=== PATIENT | female | born 1945 | race Caucasian/White ===

== ENCOUNTER → 2017-12-01 08:38 | Outpatient (CLI) | payer OTHER, SELFPAY ==
--- NOTE | 2017-12-01 08:28 | DI.REPORT_ITS ---
SYMPTOM/DIAGNOSIS: EVAL BILAT KNEE PAIN. EVAL LLD, HIP AND KNEE PAIN BILATERAL KNEES: RIGHT KNEE: There is marked narrowing of the medial femoral tibial joint space. Subchondral sclerosis and flattening of the articular surfaces is also noted. Cliff-articular spurring is seen involving all three joint compartments There is a moderate joint effusion. The bones appear intact The bones are osteopenic. IMPRESSION: Marked osteoarthritis of the right knee. LEFT KNEE: There is marked narrowing of the medial femoral tibial joint space with subchondral sclerosis and flattening of the articular surfaces. There are cliff- articular osteophytes seen involving the medial femoral tibial joint and the patella femoral joint. There is a moderate size joint effusion,. The bones appear intact and normally mineralized. IMPRESSION: Marked osteoarthritis of the left knee.
--- NOTE | 2017-12-01 09:06 | DI.REPORT_ITS ---
SYMPTOM/DIAGNOSIS: EVAL LLD, HIP AND KNEE PAIN BONE LENGTH EXAMINATION: No priors for comparison In the right hip there is marked joint space narrowing, subchondral sclerosis and spurring. There is also loss of volume of the femoral head. In the right knee there is marked joint space narrowing sclerosis and flattening of the articular surfaces predominantly involving the medial femoral tibial joint space. Mild periarticular spurring is seen in the lateral femoral tibial joint space. In the left knee there is marked joint space narrowing and subchondral sclerosis and spurring in the medial femoral tibial joint space. The right lower extremity measures 84.4 cm The left lower extremity measures 87 cm.
== END ==
PROVIDERS: PCP Psychiatry & Neurology Neurology; Visit Provider Student in an Organized Health Care Education/Training Program
DX: M17.11 Unilateral primary osteoarthritis, right knee (principal); M17.12 Unilateral primary osteoarthritis, left knee; M16.11 Unilateral primary osteoarthritis, right hip; M21.70 Unequal limb length (acquired), unspecified site
CPT/HCPCS: 73562 ×2; 77073; 20610; 99214; J1040

== ENCOUNTER → 2018-05-04 08:07 | Outpatient (BNVA) | payer OTHER, SELFPAY | PROVIDERS: PCP Psychiatry & Neurology Neurology; Visit Provider Psychiatry & Neurology Neurology | DX: G20 Parkinson's disease (principal) | CPT/HCPCS: 99213 ==

== ENCOUNTER 2018-05-28 00:34 | Outpatient (CLI) | payer OTHER, SELFPAY ==
--- NOTE | 2018-05-28 10:07 | DI.MAMMO_ITS ---
SYMPTOMS/DIAGNOSIS: SCREENING, Z12.31 MAMMOGRAM: Mammograms were interpreted according to the usual protocol including computer analysis with CAD system, tomosynthesis and C view imaging. Comparison is made with exams from 2012 through 2016. The breasts are composed of heterogeneously dense fibroglandular tissue, breast density Category C. No suspicious masses or suspicious microcalcifications are seen. There is motion on both CC views as well as on the right MLO view. The patient should return for repeat views at no additional charge. IMPRESSION: Bilateral Category O. MQSA ASSESSMENT OF FINDINGS: Incomplete: Needs additional imaging evaluation. Category 0. Patient will receive a letter notifying them of these results. Bi-RADS category C. The breasts are heterogeneously dense, which may obscure small masses.
== END 2018-05-28 00:54 ==
PROVIDERS: PCP Psychiatry & Neurology Neurology; Visit Provider Nurse Practitioner Family
DX: Z12.31 Encounter for screening mammogram for malignant neoplasm of breast (principal); R92.8 Other abnormal and inconclusive findings on diagnostic imaging of breast
CPT/HCPCS: 77063; 77067

== ENCOUNTER 2018-06-02 00:54 | Outpatient (CLI) | payer OTHER, SELFPAY ==
--- NOTE | 2018-06-02 09:45 | DI.MAMMO_ITS ---
SYMPTOMS/DIAGNOSIS: MOTION ON BOTH CC VIEWS, R92.8 REPEAT CRANIOCAUDAD AND MEDIOLATERAL MAMMOGRAMS: Mammograms were interpreted according to the usual protocol including computer analysis with CAD system, tomosynthesis and C view imaging. Today's study is technically satisfactory. Scarring is noted in the upper outer quadrant of the left breast at a biopsy site. There is no definite mass. There are no suspicious calcifications and there has been no significant interval change when compared with prior images. SUMMARY: No evidence of malignancy, category 1. Yearly screening mammography is recommended. Breast density category C. MQSA ASSESSMENT OF FINDINGS: Negative. Category 1. Patient will receive a letter notifying them of these results. Bi-RADS category C. The breasts are heterogeneously dense, which may obscure small masses.
== END 2018-06-02 01:14 ==
PROVIDERS: PCP Psychiatry & Neurology Neurology; Visit Provider Nurse Practitioner Family
DX: Z12.31 Encounter for screening mammogram for malignant neoplasm of breast (principal); R92.8 Other abnormal and inconclusive findings on diagnostic imaging of breast; N64.59 Other signs and symptoms in breast
CPT/HCPCS: 77063; 77067

== ENCOUNTER → 2018-06-11 11:54 | Outpatient (BNVA) | payer OTHER, SELFPAY | PROVIDERS: PCP Psychiatry & Neurology Neurology; Visit Provider Internal Medicine Cardiovascular Disease | DX: I48.2 Chronic atrial fibrillation (principal); I08.3 Combined rheumatic disorders of mitral, aortic and tricuspid valves; I27.20 Pulmonary hypertension, unspecified; G20 Parkinson's disease; Z79.01 Long term (current) use of anticoagulants | CPT/HCPCS: 99214 ==

== ENCOUNTER → 2018-10-26 09:31 | Outpatient (BNVA) | payer OTHER, SELFPAY | PROVIDERS: PCP Nurse Practitioner; Visit Provider Psychiatry & Neurology Neurology | DX: G20 Parkinson's disease (principal) | CPT/HCPCS: 99213 ==

== ENCOUNTER 2018-12-25 06:22 | Day surgery (SDC) | payer OTHER, SELFPAY ==
--- NOTE | 2018-12-24 07:36 | W.PIPPEYE ---
History of Present Illness Chief Complaint: Progressive decreased vision, left eye Narrative: The patient is a 73-year-old lady with history of progressive decreased vision in both eyes at both distance and near. No significant difficulty reading and driving. On examination she was noted to have bilateral nuclear and cortical cataracts with best corrected vision of 20/30 OD, 20/60 OS, but with significant glare disability. NOTE: The Chief Complaint, HPI, Past Medical History, Past Surgical History, Family History, Social History, Medications, and complete Ophthalmic Exam with detailed Assessment and Plan have already been documented in the patient's outpatient ophthalmic record and are not covered again in detail here. [facility] Social History Smoking/Tobacco Use Status: Never Alcohol Intake: current Alcohol Intake frequency: holidays/special occasions only Alcohol type: wine Substance use type: does not use Household members: none What type of physical activity do you participate in: walking and swimming Do you feel safe at home: Yes Additional Social history: with 2 grown children. 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 No smoking. Occasional wine. No illicit drug use. Female Reproductive History Menstrual Menopause type: natural History History 2 Para Hx # Term Pregnancies 2 Multiple births Hx # Pregnancies Ectopic pregnancies AB induced Hx Number of Living Children AB spontaneous Meds Home Medications Medication Instructions Recorded Confirmed Type amantadine HCl 100 mg capsule 100 mg PO TID #270 tab-cap 07/30/18 12/22/18 Rx carbidopa 25 mg-levodopa 100 mg 1 tab PO as directed #35 tab-cap 07/31/18 12/22/18 Rx tablet apixaban 5 mg tablet 5 mg PO BID 90 Days #180 tab-cap 11/19/18 12/22/18 Rx TUMERIC 1 cap PO DAILY PRN 12/14/18 12/22/18 History Allergies Allergy/AdvReac Type Severity Reaction Status Date / Time No Known Allergies Allergy Verified 12/22/18 11:14 Exam OCULAR EXAM:: Most recent ocular examination is significant for best corrected vision of 20/30 OD, 20/60 OS. Intraocular pressure is 16 OD, 15 OS. Extraocular motility is normal. Pupils equal, round, and reactive without afferent pupillary defect slit-lamp examination is significant for pupils dilating to 5.5 mm OU. 2-3+ nuclear cataract with 2-3+ cortical spoking OU. Dilated funduscopic examination shows disc cupping of 0.2 OU with normal vessels, macula, peripheral retina and vitreous. BRIGHTNESS ACUITY TESTING (BAT):: Brightness acuity testing of the left eye office is 20/70. Low is 20/80. Medium is 20/100. High is 20/400 Assessment and Plan (1) Nuclear sclerotic cataract of right eye: Current visit: No Status: Acute Assessment: Visually significant cataract, left eye. Plan: Cataract extraction with intraocular lens implantation, left eye (2) Cortical cataract of left eye: Current visit: No Status: Acute Assessment: Visually significant cataract, left eye. Plan: Cataract extraction with intraocular lens implantation, left eye Note: NOTE:: The details of the planned surgery, including the risks, indications,limitations,expectations,outcome and possible complications were explained to the patient. The patient understands the complications including, but not limited to: infection, hemorrhage, posterior dislocation of the lens or nuclear fragments which may require the intervention of a vitreoretinal surgeon, possible loss of the eye, or from anesthetic complications. The patient has been made aware of the option of not having surgery, that vision following surgery may not be equal to that prior to surgery, and that the planned surgery may not achieve the intended results. Following this discussion, which the patient appeared to understand, the patient wishes to proceed with cataract surgery with lens implantation of the affected eye to improve and maximize vision.
--- NOTE | 2018-12-24 21:02 | W.PM.DSUDISC ---
Discharge Plan Disposition Patient Disposition: HOME Condition: Stable Discharge Details Attending Provider: Eber Lugo Primary Care Provider: Macy Godoy Home Meds and New Rx's Prescriptions: No Action amantadine HCl 100 mg capsule 100 mg PO TID Qty: 270 RF: 3 carbidopa-levodopa [Sinemet] 25-100 mg tablet 1 tab PO as directed Qty: 35 RF: 0 Eliquis 5 mg tablet 5 mg PO BID 90 Days Qty: 180 RF: 6 TUMERIC 1 cap PO DAILY PRNRF: 0 Discharge Instructions Stand Alone Forms: Post-op Topical Cataract, Levi Russ (DSU) DS: Diagnosis Discharge Diagnosis (1) Nuclear sclerotic cataract of right eye: Status: Acute (2) Cortical cataract of left eye: Status: Resolved (3) Nuclear sclerotic cataract of left eye: Status: Resolved (4) Status post cataract extraction and insertion of intraocular lens of left eye: Status: Chronic
[2018-12-25 06:38] VITALS: BP 165/109; PULSE 103; RESP 18; TEMP 35.8; O2SAT 100
[2018-12-25] MEDS: Tropicam./Phenyleph. (1/2.5%) 5 ML BTL OS ×3 (06:53→07:02)
[2018-12-25] MEDS: Tetracaine 0.5% 4 ML BTL OS ×4 (06:53→07:31)
[2018-12-25] MEDS: Povidone-Iodine Ophth 30 ML BTL (07:31)
[2018-12-25] MEDS: Lidocaine 2% Jelly 6 ML SYR (07:31)
[2018-12-25] MEDS: Trypan Blue 0.06% 0.5 ML SYR (07:35)
[2018-12-25] MEDS: Balanced Salt Soln.-PLUS 500 ML BAG (07:37)
[2018-12-25] MEDS: Lidocaine 1% Pres-Free 5 ML VIAL (07:37)
--- NOTE | 2018-12-25 08:11 | W.PM.OP ---
Date of service: 12/25/18 Time of Service: 08:12 Operative Note PRE-OP DIAGNOSIS: Cataract, left eye, with poor red reflex POST-OP DIAGNOSIS: same PROCEDURE: Cataract extraction using phacoemulsification with intraocular lens implant, left eye, using capsular staining with Vision Blue SURGEON: Eber Lugo ANESTHESIA: MAC (with local sub-tenon's anesthetic injection) COMPLICATIONS: None Patient was transported to: same day Patient's condition: stable Implants: Mani and Mani / [employer] Tecnis [id number] Indications: Progressive decreased vision due to cataract, left eye, with poor red reflex Procedure Description: CATARACT SURGERY OPERATIVE REPORT PREOPERATIVE DIAGNOSIS: 1. Nuclear/cortical cataract, left eye 2. Poor red reflex secondary to #1 POSTOPERATIVE DIAGNOSIS: Same OPERATION: 1. Cataract extraction using phacoemulsification with posterior chamber intraocular lens implant, left eye. 2. Capsular staining with Vision Blue IOL: IOL Transformation Lead/Model: Mani & Mani / TARI Tecnis [id number] IOL Power: + 23.0 diopters IOL Serial Number: [id number] Optic Diameter: 6.0 mm Haptic/Overall Diameter: 13.0 mm PHACO INFO: Peter InQ Biosciencesurion Vision System with OZil and Active Fluidics Cumulative Dispersed Energy (CDE): 14.03 seconds SURGEON: Eber Lugo MD, LAURA [facility]HESIA: [facility] ([facility] with local sub-tenon's anesthetic infiltration COMPLICATIONS: None SPECIMENS: None INDICATIONS FOR PROCEDURE: The patient is a 73-year-old lady with history of diminished visual acuity in her left eye. She is noted to have a dense nuclear and cortical cataract with visual acuity of 20/70. The option of cataract surgery was offered to the patient and she wished to proceed. PROCEDURE: The correct surgical eye was identified and marked as the left eye and the pupil was dilated in the preoperative area using mydriatics and cycloplegics. The dilated pupil size was 5.5 mm. Oral sedation was administered in the form of an Imprimis MKO Melt (midazolam 3mg/ketamine 25mg/ondansetron 2mg). The patient was brought to the operating room where cardiopulmonary monitoring was instituted and surgical time-out was performed, confirming the correct operative eye and IOL power. Topical anesthesia was administered and ophthalmic povidone-iodine 5% was instilled into the conjunctival fornices. Lidocaine gel was applied to the cornea and the cliff-ocular area was prepped with Betadine 10% solution and draped in the usual sterile fashion for intraocular surgery, including an aperture drape. A Tegaderm transparent film dressing was cut in half and used to cover the lashes and lid margins. Care was taken to sequester the lashes and lid margins under the Tegaderm dressing. A lid speculum was placed between the lids of the operative eye and the Radha-Chad operating microscope was maneuvered into position. Bob scissors were then used to make a conjunctival buttonhole approximately 6mm posterior to the limbus in the inferonasal quadrant. Blunt dissection was carried out to expose bare sclera, and a blunt-tipped sub-tenon?s anesthesia cannula was introduced and passed posteriorly along the globe where non-preserved plain lidocaine was injected into posterior sub-Tenon?s space. A sideport knife was used to make a paracentesis port at the 12:00 position. Air was injected into the anterior chamber, followed by Vision Blue, which was painted over the anterior capsule and then irrigated out using BSS. The anterior chamber was filled with Healon GV. A 2.4mm keratome knife was used to create a half-thickness groove at the limbus and then to construct a three-plane near-clear corneal tunnel extending 2.0mm into clear cornea at the 3:00 position. A flap was raised on the anterior capsule and capsulorhexis forceps were used to complete a continuous curvilinear capsulorhexis of 5.0 mm. Balanced salt solution was then used to perform cortical cleaving hydrodissection and nuclear hydrodelineation until the lens could be freely rotated within the capsular bag. The lens nucleus was then disassembled and removed within the capsular bag and iris plane using phacoemulsification. The pupil constricted to 3.5 mm during phacoemulsification, making visualization difficult. The iris was noted to be quite floppy. Residual cortical material was removed using the 45-degree angled silicone I/A tip with 0.3mm port. A Kuglen hook was used to retract the iris to ensure complete cortical removal. The posterior capsule was carefully polished to remove as much residual lens epithelial cells as safely possible. The capsular bag was then inflated and the anterior chamber deepened with viscoelastic. The lens implant described above was inserted into the capsular bag using the TARI [place] Injector. A Kuglen hook was used to dial the IOL into position. Residual viscoelastic was then removed first from posterior to the IOL, then from the anterior chamber using the I/A handpiece. The lens implant was noted to center nicely within the capsular bag. The incisions were stromally hydrated, and the anterior chamber was reformed using BSS. Then 0.4cc of moxifloxacin 1.5mg/ml were injected into the capsular bag and anterior chamber. The incisions were checked with a Weck spear and found to be secure. Several drops of ophthalmic povidone-iodine 5% were then applied to the eye followed by two drops of Imprimis combination gatifloxacin/dexamethasone solution. The drapes were removed and a clear plastic protective eye shield was placed over the eye. The patient was then returned to Same Day Surgery in stable condition.
--- NOTE | 2018-12-25 08:14 | ROE_ITS ---
Date of service: 12/25/18 Time of Service: 08:12 Operative Note PRE-OP DIAGNOSIS: Cataract, left eye, with poor red reflex POST-OP DIAGNOSIS: same PROCEDURE: Cataract extraction using phacoemulsification with intraocular lens implant, left eye, using capsular staining with Vision Blue SURGEON: Eber Lugo ANESTHESIA: MAC (with local sub-tenon's anesthetic injection) COMPLICATIONS: None Patient was transported to: same day Patient's condition: stable Implants: Mani and Mani / [employer] Tecnis [id number] Indications: Progressive decreased vision due to cataract, left eye, with poor red reflex Procedure Description: CATARACT SURGERY OPERATIVE REPORT PREOPERATIVE DIAGNOSIS: 1. Nuclear/cortical cataract, left eye 2. Poor red reflex secondary to #1 POSTOPERATIVE DIAGNOSIS: Same OPERATION: 1. Cataract extraction using phacoemulsification with posterior chamber intraocular lens implant, left eye. 2. Capsular staining with Vision Blue IOL: IOL Liaison Officer/Model: Mani & Mani / TARI Tecnis ZCB00 IOL Power: + 23.0 diopters IOL Serial Number: [id number] Optic Diameter: 6.0 mm Haptic/Overall Diameter: 13.0 mm PHACO INFO: Peter N-1-1urion Vision System with OZil and Active Fluidics Cumulative Dispersed Energy (CDE): 14.03 seconds SURGEON: Eber Lugo MD, LAURA ANESTHESIA: [facility]), with local sub-tenon's anesthetic infiltration COMPLICATIONS: None SPECIMENS: None INDICATIONS FOR PROCEDURE: The patient is a 73-year-old lady with history of diminished visual acuity in her left eye. She is noted to have a dense nuclear and cortical cataract with visual acuity of 20/70. The option of cataract surgery was offered to the patient and she wished to proceed. PROCEDURE: The correct surgical eye was identified and marked as the left eye and the pupil was dilated in the preoperative area using mydriatics and cycloplegics. The dilated pupil size was 5.5 mm. Oral sedation was administered in the form of an Imprimis MKO Melt (midazolam 3mg/ketamine 25mg/ondansetron 2mg). The patient was brought to the operating room where cardiopulmonary monitoring was instituted and surgical time-out was performed, confirming the correct operative eye and IOL power. Topical anesthesia was administered and ophthalmic povidone-iodine 5% was instil led into the conjunctival fornices. Lidocaine gel was applied to the cornea and the cliff-ocular area was prepped with Betadine 10% solution and draped in the usual sterile fashion for intraocular surgery, including an aperture drape. A Tegaderm transparent film dressing was cut in half and used to cover the lashes and lid margins. Care was taken to sequester the lashes and lid margins under the Tegaderm dressing. A lid speculum was placed between the lids of the operative eye and the Radha-Chad operating microscope was maneuvered into position. Bob scissors were then used to make a conjunctival buttonhole approximately 6mm posterior to the limbus in the inferonasal quadrant. Blunt dissection was carried out to expose bare sclera, and a blunt-tipped sub-tenon?s anesthesia cannula was introduced and passed posteriorly along the globe where non- preserved plain lidocaine was injected into posterior sub-Tenon?s space. A sideport knife was used to make a paracentesis port at the 12:00 position. Air was injected into the anterior chamber, followed by Vision Blue, which was painted over the anterior capsule and then irrigated out using BSS. The anterior chamber was filled with Healon GV. A 2.4mm keratome knife was used to create a half-thickness groove at the limbus and then to construct a three-plane near-clear corneal tunnel extending 2.0mm into clear cornea at the 3:00 position. A flap was raised on the anterior capsule and capsulorhexis forceps were used to complete a continuous curvilinear capsulorhexis of 5.0 mm. Balanced salt solution was then used to perform cortical cleaving hydrodissection and nuclear hydrodelineation until the lens could be freely rotated within the capsular bag. The lens nucleus was then disassembled and removed within the capsular bag and iris plane using phacoemulsification. The pupil constricted to 3.5 mm during phacoemulsification, making visualization difficult. The iris was noted to be quite floppy. Residual cortical material was removed using the 45-degree angled silicone I/A tip with 0.3mm port. A Kuglen hook was used to retract the iris to ensure complete cortical removal. The posterior capsule was carefully polished to remove as much residual lens epithelial cells as safely possible. The capsular bag was then inflated and the anterior chamber deepened with viscoelastic. The lens implant described above was inserted into the capsular bag using the TARI [place] Injector. A Kuglen hook was used to dial the IOL into position. Residual viscoelastic was then removed first from posterior to the IOL, then f rom the anterior chamber using the I/A handpiece. The lens implant was noted to center nicely within the capsular bag. The incisions were stromally hydrated, and the anterior chamber was reformed using BSS. Then 0.4cc of moxifloxacin 1.5mg/ml were injected into the capsular bag and anterior chamber. The incisions were checked with a Weck spear and found to be secure. Several drops of ophthalmic povidone-iodine 5% were then applied to the eye followed by two drops of Imprimis combination gatifloxacin/dexamethasone solution. The drapes were removed and a clear plastic protective eye shield was placed over the eye. The patient was then returned to Same Day Surgery in stable condition.
[2018-12-25 08:40] VITALS: BP 119/80; PULSE 66; RESP 18; TEMP 36; O2SAT 98
== END 2018-12-25 08:50 | disposition home or self-care (01) ==
LOC: SUR 06:22
PROVIDERS: PCP Nurse Practitioner; Visit Provider Ophthalmology
PROC: (CPT 66982; principal; 2018-12-25 07:30)
DX: H25.12 Age-related nuclear cataract, left eye (principal); H25.012 Cortical age-related cataract, left eye; H35.89 Other specified retinal disorders
CPT/HCPCS: 66982; V2632

== ENCOUNTER 2019-01-08 06:24 | Day surgery (SDC) | payer OTHER, SELFPAY ==
--- NOTE | 2019-01-07 07:55 | W.PIPPEYE ---
History of Present Illness Chief Complaint: Progressive decreased vision, right eye Narrative: The patient is a 73-year-old lady with history of diminished visual acuity in both eyes secondary to the development of bilateral nuclear and cortical cataracts. She noted decreased vision of both distance and near. She has significant difficulty with glare from sunlight and headlights at night. On examination she was noted to have 2-3+ nuclear and cortical cataracts OU. She underwent cataract surgery in the left eye on 12/25/2018, and postoperatively has regained uncorrected visual acuity of 20/25. She now presents for cataract surgery in the right eye. NOTE: The Chief Complaint, HPI, Past Medical History, Past Surgical History, Family History, Social History, Medications, and complete Ophthalmic Exam with detailed Assessment and Plan have already been documented in the patient's outpatient ophthalmic record and are not covered again in detail here. [facility] Social History Smoking/Tobacco Use Status: Never Alcohol Intake: current Alcohol Intake frequency: holidays/special occasions only Alcohol type: wine Substance use type: does not use Household members: none What type of physical activity do you participate in: walking and swimming Do you feel safe at home: Yes Additional Social history: with 2 grown children. 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 No smoking. Occasional wine. No illicit drug use. Female Reproductive History Menstrual Menopause type: natural History History 2 Para Hx # Term Pregnancies 2 Multiple births Hx # Pregnancies Ectopic pregnancies AB induced Hx Number of Living Children AB spontaneous Meds Home Medications Medication Instructions Recorded Confirmed Type amantadine HCl 100 mg capsule 100 mg PO TID #270 tab-cap 07/30/18 12/25/18 Rx carbidopa 25 mg-levodopa 100 mg 1 tab PO as directed #35 tab-cap 07/31/18 12/25/18 Rx tablet apixaban 5 mg tablet 5 mg PO BID 90 Days #180 tab-cap 11/19/18 12/25/18 Rx TUMERIC 1 cap PO DAILY PRN 12/14/18 12/25/18 History Allergies Allergy/AdvReac Type Severity Reaction Status Date / Time No Known Allergies Allergy Verified 12/25/18 06:36 Exam OCULAR EXAM:: Most recent ocular examination is significant for uncorrected visual acuity of 20/50 OD, 20/25 OS. Intraocular pressure is 16 OD, 17 OS. Pupils equal, round, and reactive without afferent pupillary defect extraocular motility is normal. Slit-lamp examination is significant for 2-3+ nuclear 2-3+ cortical spoking OD. Well-positioned PCIOL OS with some residual posterior capsular haze inferiorly dilated funduscopic examination shows disc cupping of 0.2 OU with normal color. The optic nerves have good perfusion and normal color. The retinal vasculature is normal without significant tortuosity or abnormality. The maculas are normal in appearance with normal contour and foveal reflex appropriate for age. The peripheral retina and vitreous are normal. BRIGHTNESS ACUITY TESTING (BAT):: Brightness acuity testing of the right eye off is 20/30. On the low setting is 20/60. On the medium is 20/80. On the high setting is 20/400. Assessment and Plan (1) Cortical cataract of right eye: Current visit: No Status: Acute Assessment: Visually significant cataract, right eye. Plan: Cataract extraction with intraocular lens implantation, right eye (2) Nuclear sclerotic cataract of right eye: Current visit: No Status: Acute Assessment: Visually significant cataract, right eye. Plan: Cataract extraction with intraocular lens implantation, right eye Note: NOTE:: The details of the planned surgery, including the risks, indications,limitations,expectations,outcome and possible complications were explained to the patient. The patient understands the complications including, but not limited to: infection, hemorrhage, posterior dislocation of the lens or nuclear fragments which may require the intervention of a vitreoretinal surgeon, possible loss of the eye, or from anesthetic complications. The patient has been made aware of the option of not having surgery, that vision following surgery may not be equal to that prior to surgery, and that the planned surgery may not achieve the intended results. Following this discussion, which the patient appeared to understand, the patient wishes to proceed with cataract surgery with lens implantation of the affected eye to improve and maximize vision.
[2019-01-08 06:42] VITALS: BP 164/100; PULSE 97; RESP 16; TEMP 35.4; O2SAT 98
[2019-01-08] MEDS: Tetracaine 0.5% 4 ML BTL OD ×4 (06:55→07:38)
[2019-01-08] MEDS: Tropicam./Phenyleph. (1/2.5%) 5 ML BTL OD ×3 (06:56→07:05)
--- NOTE | 2019-01-08 07:17 | W.PM.DSUDISC ---
Discharge Plan Disposition Patient Disposition: HOME Condition: Stable Discharge Details Attending Provider: Eber Lugo Primary Care Provider: Macy Godoy Home Meds and New Rx's Prescriptions: No Action amantadine HCl 100 mg capsule 100 mg PO TID Qty: 270 RF: 3 carbidopa-levodopa [Sinemet] 25-100 mg tablet 1 tab PO as directed Qty: 35 RF: 0 Eliquis 5 mg tablet 5 mg PO BID 90 Days Qty: 180 RF: 6 TUMERIC 1 cap PO DAILY PRNRF: 0 Discharge Instructions Stand Alone Forms: Post-op Topical Cataract, Levi Russ (DSU) DS: Diagnosis Discharge Diagnosis (1) Cortical cataract of right eye: Status: Resolved (2) Nuclear sclerotic cataract of right eye: Status: Resolved (3) Status post cataract extraction and insertion of intraocular lens of right eye: Status: Chronic
[2019-01-08] MEDS: Povidone-Iodine Ophth 30 ML BTL (07:38)
[2019-01-08] MEDS: Lidocaine 1% Pres-Free 5 ML VIAL (07:38)
[2019-01-08] MEDS: Lidocaine 2% Jelly 6 ML SYR (07:38)
[2019-01-08] MEDS: Balanced Salt Soln.-PLUS 500 ML BAG (07:38)
--- NOTE | 2019-01-08 08:06 | W.PM.OP ---
Date of service: 01/08/19 Time of Service: 08:06 Operative Note PRE-OP DIAGNOSIS: Cataract, right eye, with poorly dilating pupil POST-OP DIAGNOSIS: same PROCEDURE: 1. Cataract extraction by phacoemulsification with intraocular lens implantation, right eye, with pupillary expansion device SURGEON: Eber Lugo ANESTHESIA: MAC (with local sub-tenon's anesthetic injection) PATHOLOGY: none sent COMPLICATIONS: None Patient was transported to: same day Patient's condition: stable Implants: Mani and Mani / [employer] Tecnis [id number] Indications: Progressive decreased vision due to cataract, right eye, with poorly dilating pupil Procedure Description: CATARACT SURGERY OPERATIVE REPORT PREOPERATIVE DIAGNOSIS: 1. Nuclear/cortical cataract, right eye 2. Poorly dilating pupil, right eye POSTOPERATIVE DIAGNOSIS: Same OPERATION: 1. Cataract extraction using phacoemulsification with posterior chamber intraocular lens implant, right eye. 2. Pupillary dilation and iris stabilization using Malyugin Ring IOL: IOL Corporate Human Resources Manager/Model: Mani & Mani / TARI Tecnis [id number] IOL Power: + 24.50 diopters IOL Serial Number: [id number] Optic Diameter: 6.0mm Haptic/Overall Diameter: 13.0mm PHACO INFO: [employer] Vision System with OZil and Active Fluidics Cumulative Dispersed Energy (CDE): 8.64 seconds SURGEON: Eber Lugo MD, LAURA ANESTHESIA: Monitored Anesthesia Care (MAC), with local sub-tenon's anesthetic infiltration COMPLICATIONS: None SPECIMENS: None INDICATIONS FOR PROCEDURE: The patient is a 73-year-old lady with history of diminished visual acuity in both eyes secondary to the development of bilateral nuclear cortical and posterior subcapsular cataract. She has already undergone cataract surgery in her left eye and is doing well postoperatively. She now presents for cataract surgery in the right eye. PROCEDURE: The correct surgical eye was identified and marked as the right eye and the pupil was dilated in the preoperative area using mydriatics and cycloplegics. The dilated pupil size was 5.5 mm. Oral sedation was administered in the form of an Imprimis MKO Melt (midazolam 3mg/ketamine 25mg/ondansetron 2mg). The patient was brought to the operating room where cardiopulmonary monitoring was instituted and surgical time-out was performed, confirming the correct operative eye and IOL power. Topical anesthesia was administered and ophthalmic povidone-iodine 5% was instilled into the conjunctival fornices. Lidocaine gel was applied to the cornea and the cliff-ocular area was prepped with Betadine 10% solution and draped in the usual sterile fashion for intraocular surgery, including an aperture drape. A Tegaderm transparent film dressing was cut in half and used to cover the lashes and lid margins. Care was taken to sequester the lashes and lid margins under the Tegaderm dressing. A lid speculum was placed between the lids of the operative eye and the Radha-Chad operating microscope was maneuvered into position. Bob scissors were then used to make a conjunctival buttonhole approximately 6mm posterior to the limbus in the inferonasal quadrant. Blunt dissection was carried out to expose bare sclera, and a blunt-tipped sub-tenon?s anesthesia cannula was introduced and passed posteriorly along the globe where non-preserved plain lidocaine was injected into posterior sub-Tenon?s space. A sideport knife was used to make a paracentesis port inferiortemporally. The anterior chamber was filled with Healon GV. A 2.4mm keratome knife was used to create a half-thickness groove at the limbus and then to construct a three-plane near-clear corneal tunnel extending 2.0mm into clear cornea superiortemporally. A 7.0 mm Malyugin Ring was then inserted into the pupillary space and engaged with the Kuglen hook. A flap was raised on the anterior capsule and capsulorhexis forceps were used to complete a continuous curvilinear capsulorhexis of 5.0 mm. Balanced salt solution was then used to perform cortical cleaving hydrodissection and nuclear hydrodelineation until the lens could be freely rotated within the capsular bag. The lens nucleus was then disassembled and removed within the capsular bag and iris plane using phacoemulsification. Residual cortical material was removed using the 45-degree angled silicone I/A tip with 0.3mm port. The posterior capsule was carefully polished to remove as much residual lens epithelial cells as safely possible. The capsular bag was then inflated and the anterior chamber deepened with viscoelastic. The lens implant described above was inserted into the capsular bag using the TARI Venetie Ira Injector. A Kuglen hook was used to dial the IOL into position. The Malyugin Ring was removed in the reverse order of its insertion. Residual viscoelastic was then removed first from posterior to the IOL, then from the anterior chamber using the I/A handpiece. The lens implant was noted to center nicely within the capsular bag. The incisions were stromally hydrated, and the anterior chamber was reformed using BSS. Then 0.4cc of moxifloxacin 1.5mg/ml were injected into the capsular bag and anterior chamber. The incisions were checked with a Weck spear and found to be secure. Several drops of ophthalmic povidone-iodine 5% were then applied to the eye followed by two drops of Imprimis combination prednisolone/gatifloxacin/bromfenac solution. The drapes were removed and a clear plastic protective eye shield was placed over the eye. The patient was then returned to Same Day Surgery in stable condition.
[2019-01-08 08:25] VITALS: BP 112/72; PULSE 82; RESP 14; TEMP 36.1; O2SAT 99
== END 2019-01-08 08:30 | disposition home or self-care (01) ==
PROVIDERS: PCP Nurse Practitioner; Visit Provider Ophthalmology
PROC: (CPT 66982; principal; 2019-01-08 07:30)
DX: H25.811 Combined forms of age-related cataract, right eye (principal); H57.09 Other anomalies of pupillary function; Z98.42 Cataract extraction status, left eye; Z96.1 Presence of intraocular lens
CPT/HCPCS: 66982; V2632

== ENCOUNTER → 2019-04-26 10:08 | Outpatient (BNVA) | payer OTHER, SELFPAY | PROVIDERS: PCP Nurse Practitioner; Visit Provider Psychiatry & Neurology Neurology | DX: G20 Parkinson's disease (principal) | CPT/HCPCS: 99213 ==

== ENCOUNTER 2019-06-22 01:26 | Outpatient (CLI) | payer OTHER, SELFPAY ==
--- NOTE | 2019-06-22 10:30 | DI.MAMMO_ITS ---
EXAM: MG MAMMO SCREENING CLINICAL HISTORY: screening TECHNIQUE: Mammograms were interpreted according to the usual protocol including computer analysis w Attender CAD system, tomosynthesis and C-view imaging. COMPARISON: [id number] FINDINGS: The breasts are composed of heterogeneously dense fibroglandular tissue, which may obscure small mass es, breast density category C. There are no significant masses or signficant microcalcifications. Th ere has been no significant interval change when compared with prior images. IMPRESSION: Category 1, negative mammogram. Yearly screening mammography is recommended. BI-RADS Cat 1 - Negative Breast Density - Category C - Heterogeneously dense
== END 2019-06-22 01:46 ==
PROVIDERS: PCP Nurse Practitioner; Visit Provider Nurse Practitioner Family
DX: Z12.31 Encounter for screening mammogram for malignant neoplasm of breast (principal)
CPT/HCPCS: 77063; 77067

== ENCOUNTER 2019-06-25 04:36 | Outpatient (CLI) | payer OTHER, SELFPAY ==
--- NOTE | 2019-06-25 10:20 | DI.US_ITS ---
APPROVED REPORT EXAM: Comprehensive 2D, Doppler, and color-flow Echocardiogram Patient Location: In-Patient [employer] Raiser Operator: Michelle Lake [facility] ([facility]) Rhythm: Atrial Fibrillation Indications: MR AI PULMONARY HTN RHEUMRATIC MV disease. i27.20. i35.2, i05.9 Conclusion Left Ventricle : The left ventricle is normal size. There is normal LV segmental wall motion. LVEF is 45-50%. Diastolic function is indeterminate. Right Ventricle : Right ventricle is moderately dilated. Right ventricle is mildly hypokinetic. Atria : Left atrium is severely dilated. Right atrium is severely dilated. Aortic Valve : The Aortic valve is sclerotic. Aortic valve is trileaflet. Mild aortic stenosis (Mean gradient 7mmHg). Moderate aortic regurgitation (PHT 303msec) Mitral Valve : Mitral valve leaflets are mildly thickened. There is no mitral annular calcification. Moderate mitral regurgitation (ERO 0.21, RF 38%.) No evidence of mitral valve stenosis. Tricuspid Valve : The tricuspid valve leaflets are thickened , but open well. Moderate to severe tric uspid regurgitation. There is no hepatic vein diastolic reversal. Pulmonic Valve : Pulmonic valve is not well visualized. Great Vessels : The IVC is dilated but collapses greater than 50%. Estimated RVSP is between 40-45 m mHg. Compared to prior echocardiogram dated 03/09/2018: The patient's ejection fraction has decreased sligh tly. Multiple valvular abnormalities remain grossly unchanged. Wall motion Left Ventricle The left ventricle is normal size. Left ventricular systolic function is mildly decreased. There is n ormal left ventricular wall thickness. There is normal LV segmental wall motion. Diastolic function i s indeterminate. LVEF is 45-50%. Right Ventricle Right ventricle is moderately dilated. Right ventricle is mildly hypokinetic. Atria Left atrium is severely dilated. Right atrium is severely dilated. Aortic Valve The Aortic valve is sclerotic. Aortic valve is trileaflet. Mild aortic stenosis (Mean gradient 7mmHg) . Moderate aortic regurgitation (PHT 303msec). There is no diastolic reversal in the aorta. Mitral Valve There is no mitral annular calcification. The mitral valve is mildly thickened but opens well. No radha dence of mitral valve stenosis. Moderate mitral regurgitation (ERO 0.21, RF 38%.) Tricuspid Valve The tricuspid valve leaflets are thickened , but open well. Moderate to severe tricuspid regurgitatio n. There is no hepatic vein diastolic reversal. Pulmonic Valve Pulmonic valve is not well visualized. Mild to moderate pulmonic regurgitation. Great Vessels The aortic root is normal in size. The IVC is dilated but collapses greater than 50%. Estimated RVSP is between 40-45 mmHg. Pericardium trivial circumfrencial pericardial effusion. 2D Dimensions IVSd 1.02 cm F: 0.6-1.0 LV EDV A2C 74.40 mL PWd 0.95 cm F: 0.6 - 1.0 LV EDV A4C 82.40 mL LVDd 5.14 cm F: 3.9 - 5.3 LA Volume Index A2C 76.64 mL/m2 LVDs 3.96 cm F: 2.2 - 3.5 LA Volume Index A4C 72.39 mL/m2 RVID Base (AP4) 4.50 cm (M/F) 2.5-4.1 LA Volume Index Biplane 78.78 mL/m2 RA Area A4C 29.16 cm2 LA Area A4C 30.37 cm2 LVOT 2.00 cm (M/F) 1.5-2.5 LA Area A2C 29.54 cm2 Ascending Aorta 3.68 cm F: 2.3 - 3.1 EF AP4 49.27 % LVEF (Teich) 45.84 % EF AP2 58.06 % LVEF (Garcia's) 53.72 % F: 54 - 74 EF BP 53.72 % LV Volume 66.96 mL F: 46 - 106 LV Volume Index 42.37 mL/m2 F: 29 - 61 FS 22.99 % LV Diastology MED E' 0.08 (>0.07 m/s) LV E/e MED 13.33 (<14) LAT E' 0.11 (>0.1 m/s) LV E/e LAT 9.85 (<14) Aortic Valve LVOT Area 3.13 cm2 LVOT Peak Richard. 0.77 m/s LVOT Mean Richard. 0.61 m/s LVOT Peak Gr. 2.38 mmHg AMADO Vmax Index 0.87 cm2/m2 LVOT Mean Gr. 1.59 mmHg LVOT VTI 0.15 m AMADO Mean Richard. Index 0.90 cm2/m2 AoV Peak Richard. 1.75 (0.5-1.3 m/s) AoV Mean Richard. 1.33 m/s AI PHT 303.19 msec AO Peak GR. 12.28 mmHg AO Mean GR. 7.60 (<5 mmHg) AO VTI 0.34 (0.18-0.25 m) AV Regurg Decel. 1045.49 msec AMADO (VTI) 1.38 (2.5-4.5 cm2) AMADO (VTI) Index 0.86 cm/m2 Mitral Valve MV E Max Richard. 1.11 (0.4-1.3 m/s) MVA VTI 3.31 (4.0-6.0 cm2) ERO A 0.21 cm2 MV Regurg Volume 45.88 mL MV RF 38.00 % PISA Radius 0.58 cm Pulmonary Valve PV Peak Velocity 0.79 (0.5-1.5 m/s) Tricuspid Valve TR P. Velocity 3.18 m/s TV Regurg Vmax 3.18 m/s TR P. Gradient 40.46 mmHg
== END 2019-06-25 04:56 ==
PROVIDERS: PCP Nurse Practitioner; Visit Provider Internal Medicine Cardiovascular Disease
DX: I27.20 Pulmonary hypertension, unspecified (principal); I08.3 Combined rheumatic disorders of mitral, aortic and tricuspid valves; I48.91 Unspecified atrial fibrillation; I51.7 Cardiomegaly; I10 Essential (primary) hypertension
CPT/HCPCS: 93306

== ENCOUNTER 2019-07-08 08:49 | Outpatient (CLI) | payer OTHER, SELFPAY | END 2019-07-08 09:09 | PROVIDERS: PCP Nurse Practitioner; Visit Provider Internal Medicine Cardiovascular Disease | DX: I48.20 Chronic atrial fibrillation, unspecified (principal); I08.3 Combined rheumatic disorders of mitral, aortic and tricuspid valves; I10 Essential (primary) hypertension; G20 Parkinson's disease | CPT/HCPCS: 99204; 99215 ==

== ENCOUNTER → 2020-04-25 12:16 | Outpatient (BNVA) | payer OTHER, SELFPAY | PROVIDERS: PCP Nurse Practitioner; Visit Provider Psychiatry & Neurology Neurology | DX: G20 Parkinson's disease (principal); I48.20 Chronic atrial fibrillation, unspecified; R26.89 Other abnormalities of gait and mobility; G24.8 Other dystonia; I73.00 Raynaud's syndrome without gangrene | CPT/HCPCS: 99213 ==

== ENCOUNTER 2020-05-30 09:47 | Emergency (ER) | payer OTHER, SELFPAY ==
[2020-05-30 09:53] VITALS: BP 192/98; PULSE 125; RESP 20; O2SAT 100
--- NOTE | 2020-05-30 09:53 | ED.GENADUL_ITS ---
Discharge Plan Disposition Patient Disposition: HOME Condition: Stable Discharge Details Clinical Impression: Epistaxis Primary Care Provider: Macy Godoy ED Provider: Sapna Irving Home Meds and New Rx's Prescriptions: New amoxicillin-pot clavulanate [Augmentin] 875-125 mg tablet 1 tab PO BID 5 Days Qty: 10 RF: 0 Continued amantadine HCl 100 mg capsule 100 mg PO TID Qty: 270 RF: 3 carbidopa-levodopa [Sinemet] 25-100 mg tablet 1 tab PO as directed Qty: 450 RF: 3 Eliquis 5 mg tablet 5 mg PO BID 90 Days Qty: 180 RF: 6 vitamin B complex [B Complex-Vitamin B12] Tablet 1 tab PO DAILY RF: 0 TUMERIC 1 cap PO DAILY PRNRF: 0 Discharge Instructions Instructions: Nosebleed (ED) Additional Instructions: Drink plenty of fluids and get plenty of rest. Take your regular medications as directed. Take the antibiotics until finished. If your nosebleed returns, be sure to place the clamp to help with pressure. You can also try an ice pack to your forehead or back of her head. You can spray Afrin in the nostril around the site of the Rhino Rocket if the nosebleed returns. Avoid picking or blowing your nose and be sure to keep your mouth open with sneezing. You can try Vaseline inside the nostrils to keep your nose lubricated when having the heat on at home. You can also try an at home humidifier. Follow-up with your scheduled appointment with the ear nose and throat Dr. Johnson at his [place] office at 8:30 AM on June 01. You can call their office at [phone] to confirm their [place] address. Referrals: Tuan Johnson MD [ [facility]YSICIAN] - Discharge Data Discharge Date/Time-TO BE ENTERED AT DEPARTURE: 05/30/20 15:12 Discharge Physician: Sapna Irving Medical Decision Making 0489 -- 74-year-old female with a history of atrial fibrillation on Eliquis, osteoarthritis, Parkinson's disease who presents for right-sided nosebleed that started 2 and half hours prior to arrival. Nosebleed appears resolved. There is fresh blood noted along septum superiorly. Patient appears nontoxic and mildly anxious. Heart rate 120s. Blood pressure hypertensive. She has no history of hypertension. At this point time, do not see indication for labs as this just started 2 hours ago. Will spray Afrin in right nares and clamp and reassess after 30 minutes and then remove clamp. 1015 --nurse requested evaluation in room as there was slight oozing through the clamp. Oozing appeared to resolve upon my assessment. Clamp removed and there was no active bleeding source noted. Will re-clamp and reassess. 1230 --patient had multiple episodes of re-oozing which were stopped temporarily with silver nitrate. Will attempt TXA soaked cottonball and reassess. She remains hemodynamically stable without acute complaints. 1430 --patient continued tetanus through 2 separate cotton balls soaked in TXA. Decision made to place Rhino Rocket and patient agreeable. Patient monitored for approximately 30 minutes after Rhino Rocket and no further bleeding. Patient given a dose of Augmentin here and prescription to go. Patient remained hemodynamically stable and asymptomatic. Discussed with patient that I do not see an indication to hold her Eliquis at this time unless bleeding persists. She is advised to call her primary care doctor or Dr. Beatty to confirm whether to decrease or hold her Eliquis dosing if symptoms persist or worsen. Plan also discussed with patient's daughter Stormy over the phone. An appointment was made for patient with Dr. Johnson at the [place] office on June 01 at 8:30 AM. Usual and customary return precautions given prior to discharge. Medical Records Medical records reviewed: Yes I reviewed the patient's medical records. HPI General Mode of arrival: ambulatory . Date/Time Provider Initiated Documentation: 05/30/20 09:48 . Limitations to Documentation: no limitations . Information obtained by: patient . HPI Narrative: Pt is a 74yo F with a history of atrial fibrillation on Eliquis, osteoarthritis, Parkinson's disease who presents to the ED with a complaint of right-sided nosebleed that started approximately 2 and half hours ago at 7:15 AM while sitting at home. Patient states the bleeding was quite fast from her right nares. She states she placed an ice pack to the back of her head and placed pressure over her nares. She denies headache, sore throat, chest pain, shortness of breath, dizziness. She last took her Eliquis this morning. Related Data Home Medications Medication Instructions Recorded Confirmed TUMERIC 1 cap PO DAILY PRN 12/14/18 04/25/20 vitamin B complex 1 tab PO DAILY 04/26/19 04/25/20 apixaban 5 mg tablet 5 mg PO BID 90 Days #180 tab-cap 07/08/19 05/30/20 amantadine HCl 100 mg capsule 100 mg PO TID #270 tab-cap 04/25/20 05/30/20 carbidopa 25 mg-levodopa 100 mg 1 tab PO as directed #450 tab-cap 04/25/2005/18 tablet amoxicillin-pot clavulanate 1 tab PO BID 5 Days #10 tab 05/30/20 [Augmentin] Previous Rx's Medication Instructions Recorded apixaban 5 mg tablet 5 mg PO BID 90 Days #180 tab-cap 07/08/19 amantadine HCl 100 mg capsule 100 mg PO TID #270 tab-cap 04/25/20 carbidopa 25 mg-levodopa 100 mg 1 tab PO as directed #450 tab-cap 04/25/20 tablet amoxicillin-pot clavulanate 1 tab PO BID 5 Days #10 tab 05/30/20 [Augmentin] Allergies Allergy/AdvReac Type Severity Reaction Status Date / Time No Known Allergies Allergy Verified 05/30/20 09:56 Review of Systems All systems reviewed & are unremarkable except as noted in HPI and below Constitutional Constitutional: Reports as per HPI, Denies chills and Denies fever(s) Eyes Eyes: Denies blurry vision ENT Ears, Nose, Mouth, and Throat: Denies dizziness, Reports epistaxis, Denies sore throat and Denies throat swelling Cardiovascular Cardiovascular: Denies chest pain and Denies dyspnea Respiratory Respiratory: Denies cough and Denies dyspnea Gastrointestinal Gastrointestinal: Denies abdominal pain, Denies diarrhea and Denies vomiting Genitourinary Genitourinary: Denies hematuria and Denies dysuria Musculoskeletal Musculoskeletal: Denies back pain and Denies numbness Integumentary/Breasts Skin/Breast: Denies lesions and Denies rash Neurologic Neurologic: Denies dizziness, Denies localized weakness and Denies numbness Allergic/Immunologic Allergic/Immunologic: Denies throat swelling [facility] Medical History (Updated 05/30/20 @ 11:44 by Sapna Irving DO) Bilateral knee pain Cataract Chronic atrial fibrillation (04/29/16) Cortical cataract of right eye Elevated alkaline phosphatase level Osteoarthritis of both hands (12/12/14) Parkinson disease (04/29/16) follows with Dr. Osborne and Dr. 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 No smoking. Occasional wine. No illicit drug use. 05/30/20- unable to assess privately Female Reproductive History Menstrual Menopause type: natural History History 2 Para Hx # Term Pregnancies 2 Multiple births Hx # Pregnancies Ectopic pregnancies AB induced Hx Number of Living Children AB spontaneous Exam Const General: cooperative, healthy appearing and no acute distress [facility] Head: normal to inspection Ears: hearing grossly normal bilaterally and external ears normal General nose exam: external nose normal and epistaxis (clamp in place, no blood oozing from nares after removal to evaluate nares) on the right source not visualized (fresh blood noted to septum superiorly) Mouth: oral mucosae normal Throat: posterior oropharynx abnormal (minimal blood noted on posterior pharyngeal wall) Eyes General: appearance normal, both eyes and all related structures Neck Neck: normal visual inspection Resp Effort & Inspection: normal respiratory effort and able to speak in complete sentences Auscultation: clear to auscultation bilaterally Cardio Rate: regular rate Rhythm: regular rhythm GI Inspection: normal to inspection Palpation: soft and nontender Auscultation: hypoactive bowel sounds Skin General skin exam: no rashes or lesions noted Neuro General: patient alert, patient awake and patient oriented x3 Motor: muscle tone normal throughout Extrem General: normal to inspection and full ROM Psych Appearance: grossly normal Affect: normal affect
[2020-05-30] MEDS: Oxymetazolone 0.05% SPRAY 15 ML BTL NS (10:08)
[2020-05-30 11:44] VITALS: BP 131/89; PULSE 97; O2SAT 98
[2020-05-30] MEDS: Tranexamic Acid 1,000 MG/10 ML VIAL 1000 MG (13:18)
--- NOTE | 2020-05-30 14:36 | NUR.NOTE ---
Nursing Note: Follow up appt w/Dr. Johnson; ENT for @ 5051. [facility] office. Karely Vicente
[2020-05-30 14:43] VITALS: BP 115/82; PULSE 85; RESP 15; TEMP 36.6; O2SAT 99
[2020-05-30] MEDS: Amoxicillin 875/Clav. 125 TAB PO (14:48)
[2020-05-30] MEDS: Acetaminophen 500 MG TAB 1000 MG PO (14:48)
[2020-05-30 15:15] VITALS: BP 115/82; PULSE 85; RESP 15; TEMP 36.6; O2SAT 99
== END 2020-05-30 15:12 | disposition home or self-care (01) ==
PROVIDERS: Emergency Provider Physician Assistant; PCP Nurse Practitioner
DX: R04.0 Epistaxis (principal); R03.0 Elevated blood-pressure reading, without diagnosis of hypertension; Z79.01 Long term (current) use of anticoagulants; I48.91 Unspecified atrial fibrillation; G20 Parkinson's disease
CPT/HCPCS: 30901

== ENCOUNTER 2020-07-04 02:01 | Outpatient (CLI) | payer OTHER, SELFPAY ==
[2020-07-04 11:23] LABS: ALT 10 U/L (14-59); AST 17 U/L (15-37); Alkaline Phosphatase 156 U/L (46-116); Bilirubin, Direct 0.16 mg/dL (0.00-0.20); Bilirubin, Total 0.7 mg/dL (0.2-1.0); Total Protein 6.8 g/dL (6.4-8.2)
[2020-07-04 11:32] LABS: GGT 41 U/L (5-55)
[2020-07-06 04:38] LABS: Vitamin D 25 Total 32.2 ng/ml (30-100)
== END 2020-07-04 02:21 ==
PROVIDERS: PCP Nurse Practitioner; Visit Provider Nurse Practitioner
DX: R74.8 Abnormal levels of other serum enzymes (principal)
CPT/HCPCS: 36415; 80076; 82306; 82977

== ENCOUNTER 2020-07-18 00:56 | Outpatient (CLI) | payer OTHER, SELFPAY ==
--- NOTE | 2020-07-18 13:41 | DI.US_ITS ---
APPROVED REPORT EXAM: Comprehensive 2D, Doppler, and color-flow Echocardiogram Patient Location: Out-Patient [employer] Technician: Abena Stone RDCS (AE) Indications: Valvular disease, Mitral regurgitation Other Information Study Quality: Good Conclusion Normal left ventricular wall thickness and chamber size. Estimated ejection fraction is 65%. There are no segmental wall motion abnormalities Normal right ventricular chamber size and systolic function Both atria are severely dilated Aortic valve is trileaflet and sclerotic. There is moderate aortic regurgitation. There is very mil d aortic stenosis, mean gradient 8 mmHg Moderate mitral annular calcification. Thickened mitral leaflets. Moderate mitral regurgitation The tricuspid valve is structurally normal with moderate regurgitation. Estimated right ventricular systolic pressure is 40 mmHg, moderate pulmonary hypertension The pulmonic valve is structurally normal with trace regurgitation Dilated ascending aorta measuring 3.68 cm Compared to previous echocardiogram June 2019, left ventricular and right ventricular systolic fu nction has improved. Multiple valvular abnormalities and estimated RVSP are similar Wall motion Left Ventricle The left ventricle is normal size. The left ventricular systolic function is normal. The left ventric ular ejection fraction is within the normal range. There is normal left ventricular wall thickness. T here is normal LV segmental wall motion. There is no ventricular septal defect visualized. Left ventr icular thrombus is present. Left ventricular thrombus appears mobile. No left ventricular thrombus no wang. Left ventricular thrombus appears mobile. Left ventricular thrombus is present. LVEF is 65%. Right Ventricle Right ventricle is moderately dilated. The right ventricular systolic function is normal. The RVSP is 40.3 mmHg. Atria Left atrium is severely dilated. Right atrium is severely dilated. The interatrial septum is intact w ith no evidence for an atrial septal defect. Aortic Valve The Aortic valve is sclerotic. Aortic valve is trileaflet. Mild aortic stenosis. Moderate aortic regu rgitation. Mitral Valve Moderate mitral annular calcification. No evidence of mitral valve stenosis. Moderate mitral regurgit ation. Tricuspid Valve The tricuspid valve is normal in structure. There is no tricuspid valve stenosis. Moderate tricuspid regurgitation. Pulmonic Valve The pulmonary valve is normal in structure. There is no pulmonic valvular stenosis. Trace pulmonic re gurgitation. Great Vessels The aortic root is normal in size. The ascending aorta is moderately dilated. Aortic arch is normal i n caliber. IVC is normal in size and collapses >50% with inspiration. Pericardium There is no pericardial effusion. 2D Dimensions IVSD d PLAX 0.94 cm F: 0.6-1.0 LV Vol A2C d MOD 88.6 mL LVPW d PLAX 0.95 cm F: 0.6 - 1.0 LV Vol A4C d MOD 71.7 mL LVID d PLAX 5.11 cm F: 3.8 - 5.2 LA vol/ BSA A2C s A-L 62.5 mL/m2 LVDs 3.45 cm F: 2.2 - 3.5 LA vol/ BSA A4C s A-L 60.6 mL/m2 Ao Root d 3.22 cm F: 2.7 - 3.3 LA Vol/ BSA Biplane s A-L 62.4 mL/m2 RA Area A4C 25.25 cm2 LA Area A4C s MOD 28.28 cm2 RA Vol/ BSA A4C s A-L 52.3 mL/m2 LA Area A2C s MOD 28.33 cm2 Ao Asc Diam d 3.68 cm F: 2.3 - 3.1 LV EF A4C MOD 65.1 % LV EF Teichholz 60.0 % LV EF A2C MOD 65.1 % LVEF (Garcia's) 65.79 % F: 54 - 74 LV EF Biplane MOD 65.8 % LV Volume 67.75 mL F: 46 - 106 SV 54.64 mL LV Volume Index 42.87 mL/m2 F: 29 - 61 SV Index 34.51 mL/m2 LV Vol Biplane MOD 83.1 mL FS 32.10 % M-Mode TAPSE 1.67 cm (M/F) >1.7 LV Diastology MV E Vmax 0.85 (0.4-1.3 m/s) Aortic Valve LVOT Area 3.00 cm2 AoV Area Vmax 1.40 cm2 LVOT Vmax 1.05 m/s AoV Area/ BSA (Vmax) 0.88 cm2/m2 LVOT Mean Richard. 0.71 m/s AMADO Mean Richard. 1.39 cm2 LVOT Peak Grad 4.4 mmHg AMADO Mean Richard. Index 0.88 cm2/m2 LVOT Mean Grad 2.3 mmHg AR DT 1723 msec LVOT VTI 0.182 m AR PHT 500 msec LVOT Diam s 1.95 cm AoV Vmax 2.25 m/s Velocity Ratio 0.46 AoV Mean Richard. 1.52 m/s AoV Peak Grad 20.2 mmHg LVOT SV 54.43 mL AoV Mean Grad 10.2 mmHg AoV VTI 0.349 m AoV Area VTI 1.56 cm2 AoV Area/ BSA (VTI) 0.98 cm/m2 Mitral Valve MV DT 174 (160-240 msec) MR Vmax 5.43 m/s MV PHT 50 msec MR VTI 1.493 m MV Area PHT 4.36 cm2 MR Peak Grad 117.8 mmHg MV VTI 0.174 m MR Mean Grad 73.3 mmHg MV VTI Annulus 0.173 m MR PISA Radius 0.39 cm MV Area VTI 3.11 (4.0-6.0 cm2) MR EROA 0.06 cm2 MR Aliasing Velocity 0.35 m/s MR PISA 0.94 cm2 Pulmonary Valve PV Vmax 0.90 (0.5-1.5 m/s) RVOT Peak Gr. 1.85 mmHg PV Peak Grad 3.3 mmHg RVOT Mean Gr. 0.85 mmHg PV Mean Grad 1.6 mmHg RVOT VTI 0.115 m PV VTI 0.116 m RVOT Vmax 0.68 m/s Tricuspid Valve TR Peak Grad 37.3 mmHg TR Vmax 3.06 m/s RA Pressure 3.00 mmHg RVSP (TR) 40.3 mmHg
== END 2020-07-18 01:16 ==
PROVIDERS: PCP Nurse Practitioner; Visit Provider Internal Medicine Cardiovascular Disease
DX: I34.0 Nonrheumatic mitral (valve) insufficiency (principal)
CPT/HCPCS: 93306

== ENCOUNTER → 2020-07-31 09:45 | Outpatient (BNVA) | payer OTHER, SELFPAY | PROVIDERS: PCP Nurse Practitioner; Referring Provider Nurse Practitioner; Visit Provider Internal Medicine Cardiovascular Disease | DX: I08.3 Combined rheumatic disorders of mitral, aortic and tricuspid valves (principal); I48.20 Chronic atrial fibrillation, unspecified; G20 Parkinson's disease; I10 Essential (primary) hypertension; Z79.01 Long term (current) use of anticoagulants | CPT/HCPCS: 99214 ==

== ENCOUNTER 2020-10-18 00:53 | Outpatient (CLI) | payer OTHER, SELFPAY ==
--- NOTE | 2020-10-18 15:15 | DI.MAMMO_ITS ---
EXAM: MG MAMMO SCREENING CLINICAL HISTORY: screening,Z12.39 TECHNIQUE: Bilateral full field digital CC and MLO mammographic images were obtained with 3D tomosyn thesis and utilizing computer aided detection (CAD). COMPARISON: Available for comparison. FINDINGS: Masses/Architectural Distortion: None seen. There is a stable focal asymmetry at the 9 o'clock positi on of the left breast. Microcalcifications: No suspicious pleomorphic-type are seen. Skin Thickening/Nipple Retraction: None. IMPRESSION: 1. No significant interval change with no specific features of malignancy noted. 2. Unless there is more urgent need, screening mammography is recommended, as per [employer] guidelines. BI-RADS Category 2 - Benign Findings Breast Density - Category C - Heterogeneously dense Breast density category C or D implies that the patient has dense breast tissue. Dense breast tissue is very common and is not abnormal but dense breast tissue can make it harder to find cancer on a ma mmogram. Also, dense breast tissue may increase their breast cancer risk. This information about the result of the mammogram report was provided to the patient to raise their awareness. Use this report when you speak with the patient about their risks for breast cancer, which includes their family hist ory. At that time, you may recommend for more screening tests (Ultrasound or MRI) as they might be us eful based on their risk. A negative radiographic report should not delay biopsy if a dominant or clinically suspicious mass is present. Up to ten percent of cancers are not identified on mammography. A negative report may reinforce clinical impression. Adenosis and dense breasts may obscure an underlying neoplasm. False positive reports average 6 to 10%. Patient will receive a letter notifying them of these results.
== END 2020-10-18 01:13 ==
PROVIDERS: PCP Nurse Practitioner; Visit Provider Nurse Practitioner
DX: Z12.31 Encounter for screening mammogram for malignant neoplasm of breast (principal)
CPT/HCPCS: 77063; 77067

== ENCOUNTER 2020-12-11 03:48 | Outpatient (CLI) | payer OTHER, SELFPAY ==
[2020-12-11 09:56] LABS: Source Nasal/Nares
[2020-12-11 16:10] LABS: COVID-19 PCR Negative (Negative)
== END 2020-12-11 03:49 | disposition home or self-care (01) ==
LOC: LBO 03:49
PROVIDERS: PCP Nurse Practitioner; Visit Provider Internal Medicine Interventional Cardiology
DX: Z20.822 Contact with and (suspected) exposure to COVID-19 (principal); Z01.818 Encounter for other preprocedural examination
CPT/HCPCS: 87635

== ENCOUNTER → 2021-01-12 10:18 | Outpatient (BNVA) | payer OTHER, SELFPAY | PROVIDERS: PCP Nurse Practitioner; Referring Provider Nurse Practitioner; Visit Provider Internal Medicine Cardiovascular Disease | DX: I08.3 Combined rheumatic disorders of mitral, aortic and tricuspid valves (principal); I48.20 Chronic atrial fibrillation, unspecified; I10 Essential (primary) hypertension; G20 Parkinson's disease; Z79.01 Long term (current) use of anticoagulants | CPT/HCPCS: 99214 ==

== ENCOUNTER → 2021-04-24 11:04 | Outpatient (BNVA) | payer OTHER, SELFPAY | PROVIDERS: PCP Nurse Practitioner; Referring Provider Nurse Practitioner; Visit Provider Psychiatry & Neurology Neurology | DX: G20 Parkinson's disease (principal); I48.91 Unspecified atrial fibrillation | CPT/HCPCS: 99214 ==

== ENCOUNTER 2021-05-29 01:19 | Outpatient (CLI) | payer OTHER, SELFPAY ==
--- NOTE | 2021-05-29 06:45 | DI.RAD_ITS ---
Exam(s) XR HIP LT COMPLETE AP PELVIS EXAM: XR HIP LT COMPLETE AP PELVIS CLINICAL HISTORY: evaluate for fx s/p fall,PAIN. TECHNIQUE: 2D digital imaging was performed. COMPARISON: No exams were available for comparison FINDINGS: There is a right hip prosthesis. No pelvic fractures. No left hip fracture. Sacroiliac joints appe ar unremarkable. Multilevel degenerative disc disease noted in the lumbar spine and there is approximately 1.2 cm offs et of L3 upon L4, L3 shifted towards the right side on 4. This probably related to scoliosis which i s not included in the field of view of this study. IMPRESSION: DATA REPOSITORY: RADIATION DOSE DELIVERED:
--- NOTE | 2021-05-29 06:45 | DI.RAD_ITS ---
Exam(s) XR LUMBAR SPINE COMPLETE EXAM: XR LUMBAR SPINE COMPLETE CLINICAL HISTORY: evaluate for fx s/p fall,BACK PAIN. TECHNIQUE: 2D digital imaging was performed. COMPARISON: No exams were available for comparison FINDINGS: There is scoliosis convex right. Epicenter is at L3 level. There is advanced disc space narrowing a t L3-4 and L2-3 levels. At L2-3 level there is advanced disc space narrowing on the left side but no t on the right side. There are no compression fractures nor listhesis. Some degenerative facet arthropathy noted. Sacroi liac joints appear unremarkable. There is a right hip prosthesis seen in the peripheral aspect of th e field of view of these images. IMPRESSION: Scoliosis. Degenerative disc disease. DATA REPOSITORY: RADIATION DOSE DELIVERED:
== END 2021-05-29 01:39 ==
PROVIDERS: PCP Nurse Practitioner; Visit Provider Nurse Practitioner
DX: M54.59 Other low back pain (principal); M41.9 Scoliosis, unspecified; M51.36 Other intervertebral disc degeneration, lumbar region; W19.XXXA Unspecified fall, initial encounter
CPT/HCPCS: 72110; 73502

== ENCOUNTER → 2021-07-16 09:48 | Outpatient (BNVA) | payer OTHER, SELFPAY | PROVIDERS: PCP Nurse Practitioner; Referring Provider Nurse Practitioner; Visit Provider Internal Medicine Cardiovascular Disease | DX: I48.21 Permanent atrial fibrillation (principal); I08.3 Combined rheumatic disorders of mitral, aortic and tricuspid valves; Z98.890 Other specified postprocedural states | CPT/HCPCS: 99214; 99213 ==

== ENCOUNTER 2021-11-16 22:29 | Emergency (ER) | payer MEDICARE, SELFPAY ==
[2021-11-16 22:36] VITALS: BP 133/85; PULSE 80; RESP 20
[2021-11-16 22:45] VITALS: RESP 20
--- NOTE | 2021-11-16 22:45 | RT.EKG_ITS ---
APPROVED REPORT Exam: Resting ECG Reason for Exam: syncope Patient Location: E HR:73 bpm ECG Measurements Heart Rate 73 AXIS FL [id number] P [id number] QRSd 99 QRS -49 QT 421 T 58 QTc 465 Conclusion Atrial fibrillation...V-rate 54- 76, irreg A-activity Inferior infarct, old...Q >35mS, II III aVF
--- NOTE | 2021-11-16 23:00 | DI.CT_ITS ---
Exam(s) CT HEAD CERVICAL SPINE WO EXAM: CT HEAD CERVICAL SPINE WO CLINICAL HISTORY: fall, ?seizure. TECHNIQUE: Imaging Protocol: Axial computed tomography images with coronal and sagittal reformatted images were created and reviewed COMPARISON: No exams were available for comparison FINDINGS: BRAIN: There are no skull fractures nor fluid in the visualized paranasal sinuses. There is no evidence of intracranial hemorrhage, mass effect, or shift of midline structures. There are no extra-axial fluid collections. The ventricles are not enlarged or shifted and there is no blo od within the ventricular system nor within the basal cisterns. CERVICAL SPINE: There is no evidence of acute fracture. Degenerative anterolisthesis of C2 upon C3 noted. This rela wang to advanced degenerative changes in the right facet joint at this level. Left facet joint is rel atively unaffected.. There is also significant degenerative anterolisthesis of C7 upon T1, also rela wang to facet arthropathy. No significant prevertebral soft tissue swelling. There is multilevel chronic degenerative disc disease each level in the cervical spine. There is no significant facet joint malalignment. No significant osseous lesions evident. IMPRESSION: No acute intracranial findings on this noninfused CT scan of the brain. No evidence of cervical spine fracture, malalignment, nor acute compromise of the cervical spinal can al. Chronic degenerative changes as described above. RADIATION DOSE DELIVERED: 1,181.86mGy.cm Total DLP DATA REPOSITORY: All CT scans at this facility are submitted to the National Radiology Data Registry (NRDR) Dose Index Registry (DIR) with the [employer] ([employer]). RADIATION OPTIMIZATION: All CT scans at this facility use at least one of these dose optimization te chniques: automated exposure control; mA and/or kV adjustment per patient size (includes targeted exa ms where dose is matched to clinical indication); or iterative reconstruction.
--- NOTE | 2021-11-16 23:00 | DI.RAD_ITS ---
Exam(s) XR ELBOW RT COMPLETE EXAM: XR ELBOW RT COMPLETE CLINICAL HISTORY: fall, pain. TECHNIQUE: 2D digital imaging was performed. COMPARISON: No exams were available for comparison FINDINGS: 3 views There degenerative changes in the elbow joint. Evidence of degenerative change or possible prior frac tures of the radial head and neck. Also linear lucency in the medial aspect of the coronoid process o f the proximal ulna, possibly subtle fracture at this level. Small loose body seen in the lateral asp ect of the elbow joint, lateral to the capitellum. Elevation of the anterior fat pad noted indicating joint effusion or hemarthrosis. The ill (on bursae not swollen. No swelling in the dorsal soft tissu es of the proximal forearm. Degenerative changes noted in the elbow joint. IMPRESSION: Degenerative changes. Joint effusion. Cannot exclude the possibly of a subtle fracture here, particu larly given the appearance of the the medial aspect of the coronoid process of the ulna. If clinical ly indicated further study with CT or MRI can be performed. DATA REPOSITORY: RADIATION DOSE DELIVERED:
--- NOTE | 2021-11-16 23:09 | DI.RAD_ITS ---
Exam(s) XR SHOULDER RT COMPLETE 2+V EXAM: XR SHOULDER RT COMPLETE 2+V CLINICAL HISTORY: fall pain. TECHNIQUE: 2D digital imaging was performed. COMPARISON: No exams were available for comparison FINDINGS: Two views No evidence of obvious fracture or dislocation on this limited two view study. No abnormal calcifica tions in the soft tissues. Bone density is age-appropriate. No osseous lesions. IMPRESSION: No fracture evident DATA REPOSITORY: RADIATION DOSE DELIVERED:
[2021-11-16 23:10] VITALS: PULSE 77; RESP 23; O2SAT 90
--- NOTE | 2021-11-16 23:10 | ED.GENADUL_ITS ---
Discharge Plan Disposition Patient Disposition: HOME Condition: Stable Discharge Details Clinical Impression: Syncope Primary Care Provider: Macy Godoy ED Provider: Munir Banuelos Home Meds and New Rx's Prescriptions: Continued carbidopa-levodopa [Sinemet] 25-100 mg tablet 1 tab PO as directed Qty: 450 3RF Rx Instructions: 5 times per day at 5am, 8am, 11am, 2pm, and 5pm amantadine HCl 100 mg capsule 100 mg PO TID Qty: 270 3RF metoprolol succinate 25 mg tablet extended release 24 hr 25 mg PO .nightly Qty: 90 6RF acetaminophen [Arthritis Pain Relief (acetam)] 650 mg tablet extended release 650 mg PO Q12H 0RF Label Comments: taking three times a day TUMERIC 1 cap PO DAILY PRN0RF aspirin [Adult Aspirin Regimen] 81 mg tablet,delayed release (DR/EC) 81 mg PO DAILY 0RF amoxicillin 500 mg capsule 2,000 mg PO ONCE Qty: 4 0RF Discharge Instructions Instructions: Syncope (ED) Additional Instructions: your blood work and cat scans did not show concerning findings your elbow xray showed an effusion which is swelling of the joint. This sometimes can indicate a broken bone but given your lack of severe pain and you can move it well this is unlikely. If it still hurts this week discuss with your primary care provider about having an MRI follow up with your primary care provider this week if you feel more ill, have another episode like tonight, chest pain return to the emergency department Medical Decision Making 76 yo female with hx of afib s/p watchman procedure no longer on anticoagulation, parkinson's, who comes in after she was foud unresponsive by her daughter. The patient had been doing well during the day other than a nosebleed family was able to control themselves. She remembers going up stairs, and starting to unbutton her clothes to use the bathroom and that is it until she woke up. The daughter found her face down on the ground and states her arms were clenched to her body and her face appeared blue for about a minute until this stopped and she slowly came to. Denies fevers, chest pain, dyspnea, abdomen pain, n/v. She arrives stable. She is in afib with controlled rate. She is caox4, no focal deficits. No signs of trauma to the head and no active epistaxis. She has a skin tear over the lateral right elbow, some tenderness here and to the right shoulder with full rom of both joints. Given possible seizure vs syncope, will obtain labs including cmp, cbc, troponin and also because of the fall ct head/c spine as well as xrays of the right elbow and shoulder. She has no evidence of dvt, no tachycardia or hypoxia or chest pain/dyspnea so doubt PE at this time pt stable without complaints, labs and cat scan and shoulder xray negative. Elbow xray read as effusion and can't exclude fracture, she has minimal pain in this area and can fully range so feel this is highly unlikely, will provide sling for comfort do not feel splint indicated. I discussed with pt and her daughter and recommended observation admission. Patient is caox4 and has capacity to make her own decisions and declines to stay. She understands that it is unclear what this event was if it was a seizure vs syncope, and potential for and disability. Her daughter is staying with her and is comfortable bringing her home. They understand importance of pcp follow up and return precautions given Differential Diagnosis Differential Diagnosis: syncope, seizure, vasovagal Medical Records Medical records reviewed: Yes I reviewed the patient's medical records. Imaging Data Radiologic Study: Attestation: I personally reviewed and interpreted this imaging study as follows: Imaging: CT Scan Radiologist's impression: no acute findings Radiologic Study #2: Attestation: I personally reviewed and interpreted this imaging study as follows: Imaging: X-Ray Radiologist's impression: IMPRESSION: The anterior fat pad of the elbow is prominent, which raises suspicion for a joint effusion. And occult elbow fracture cannot be excluded. Further evaluation may be performed with MRI of the elbow. Radiologic Study #3: Attestation: I personally reviewed and interpreted this imaging study as follows: Imaging: X-Ray Radiologist's impression: no acute findings shoulder xray Lab Data Lab results reviewed: Yes I reviewed the patient's lab results. ECG Data Attestation: I personally reviewed and interpreted this ECG (s) as follows: Prior ECG tracings: not available for review Interpretation: afib, rate of 73, no acute st t wave ischemic findings HPI General Mode of arrival: ambulatory . Date/Time Provider Initiated Documentation: 11/16/21 22:46 . Limitations to Documentation: no limitations . Information obtained by: patient . History of Present Illness 76 year old F presents to the emergency department with the chief complaint of passed out, described as moderate, Patient started experiencing this hour(s) (1) and it has been now resolved. improves with No relieving factors improve symptom(s), No exacerbating factors reported . Patient notes other (nose bleed earlier). Patient did receive the following treatments prior to arrival, none Related Data Home Medications Medication Instructions Recorded Confirmed TUMERIC 1 cap PO DAILY PRN 12/14/18 11/16/21 aspirin 81 mg tablet,delayed 81 mg PO DAILY 12/15/20 11/16/21 release (Adult Aspirin Regimen) amoxicillin 500 mg capsule 2,000 mg PO ONCE #4 cap 02/26/21 07/16/21 amantadine HCl 100 mg capsule 100 mg PO TID #270 tab-cap 04/24/21 11/16/21 carbidopa 25 mg-levodopa 100 mg 1 tab PO as directed #450 tab-cap 04/24/21 11/16/21 tablet (Sinemet) acetaminophen 650 mg 650 mg PO Q12H 05/28/21 11/16/21 tablet,extended release (Arthritis Pain Relief (acetaminophen) ER) metoprolol succinate 25 mg 25 mg PO .nightly #90 tab 07/16/21 11/16/21 tablet,extended release 24 hr Previous Rx's Medication Instructions Recorded amoxicillin 500 mg capsule 2,000 mg PO ONCE #4 cap 02/26/21 amantadine HCl 100 mg capsule 100 mg PO TID #270 tab-cap 04/24/21 carbidopa 25 mg-levodopa 100 mg 1 tab PO as directed #450 tab-cap 04/24/21 tablet (Sinemet) metoprolol succinate 25 mg 25 mg PO .nightly #90 tab 07/16/21 tablet,extended release 24 hr Allergies Allergy/AdvReac Type Severity Reaction Status Date / Time No Known Allergies Allergy Verified 11/16/21 22:44 General Stated Complaint: GenMedical MARS: 3 Review of Systems All systems reviewed & are unremarkable except as noted in HPI and below Constitutional Constitutional: Denies chills, Denies fever(s) and Denies weakness Cardiovascular Cardiovascular: Denies chest pain and Denies dyspnea Respiratory Respiratory: Denies cough and Denies dyspnea Gastrointestinal Gastrointestinal: Denies abdominal pain, Denies nausea and Denies vomiting Genitourinary Genitourinary: Denies dysuria Musculoskeletal Musculoskeletal: Denies joint swelling Integumentary/Breasts Skin/Breast: Denies rash Neurologic Neurologic: Denies weakness [facility] All Active Problems (Updated 11/17/21 @ 01:00 by Munir Banuelos MD) Syncope (Chronic) 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 [facility] Tricuspid regurgitation (Acute) Mitral regurgitation (Chronic) Bilateral knee pain (Acute) Elevated alkaline phosphatase level (Acute) Raynaud's disease without gangrene (Chronic 12/14/15) Primary osteoarthritis of right hip (Chronic 12/01/17) s/p R THR 03/2018 Postmenopausal atrophic vaginitis (Chronic 12/12/14) Parkinson disease (Chronic 04/29/16) follows with Dr. Osborne and Dr. Re[place] [facility] Osteoarthritis of both hands (Chronic 12/12/14) Chronic atrial fibrillation (Chronic 04/29/16) Active Problem List Status post fall (Acute) Back pain of lumbosacral region with sciatica (Acute) White coat syndrome with diagnosis of hypertension (Acute) Nosebleed (Acute) Aortic regurgitation (Acute) Tricuspid regurgitation (Acute) Mitral regurgitation (Chronic) Bilateral knee pain (Acute) Elevated alkaline phosphatase level (Acute) Raynaud's disease without gangrene (Chronic 12/14/15) Primary osteoarthritis of right hip (Chronic 12/01/17) Postmenopausal atrophic vaginitis (Chronic 12/12/14) Parkinson disease (Chronic 04/29/16) Osteoarthritis of both hands (Chronic 12/12/14) Chronic atrial fibrillation (Chronic 04/29/16) Medical History Cataract Cortical cataract of right eye History of left heart catheterization 12/14/20 [facility] [place] atrial occlusion procedure Surgical History Status post cataract extraction and insertion of intraocular lens of left eye Status post cataract extraction and insertion of intraocular lens of right eye (01/08/19) Status post total replacement of right hip 04/17/[address] [facility] Family History Paternal Grandfather Diabetes Maternal Grandmother Tremor Social History Smoking/Tobacco Use Status: Never Second Hand Exposure: Yes Smoking risk assessment performed?: Yes Alcohol Intake: current Alcohol Intake frequency: holidays/special occasions only Alcohol type: wine Substance use type: does not use Caregiver/Support person: No Household members: none Housing: house Pets and animals: Yes Sexually active: No Do you think of yourself as: straight/heterosexual Current gender identity: female What is your relationship status?: How often do you talk on the phone with friends or family?: three or more times per week How often do you get together with friends or relatives?: three or more times per week How often do you attend taoism or anabaptist services?: decline to answer Do you belong to any clubs or organized social groups?: no Panel score (0-1 are the most socially isolated patients): 1 What type of physical activity do you participate in: walking Duration: 30-45 minutes/day Frequency: 3-4 times per week Elizabeth/Mormonism: Tenriism Special elizabeth needs: No Seatbelt use: always Helmet use: Yes Helmet use: always Drive intox or ride w/intox caterpillar driver: No Do you feel safe at home: Yes Do you feel safe in your relationship?: Yes Additional Social history: with 2 grown children. 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 No smoking. Occasional wine. No illicit drug use. 05/30/20- unable to assess privately Female Reproductive History Menstrual Menopause type: natural History History 2 Para Hx # Term Pregnancies 2 Multiple births Hx # Pregnancies Ectopic pregnancies AB induced Hx Number of Living Children AB spontaneous Exam Const General: no acute distress Orientation: alert HENMT Head: normal to inspection Ears: external ears normal General nose exam: external nose normal Mouth: moist mucous membranes Eyes General: appearance normal, both eyes and all related structures Neck Neck: normal visual inspection Resp Effort & Inspection: normal respiratory effort and able to speak in complete sentences Cardio Rate: regular rate GI Palpation: soft Skin General skin exam: no rashes or lesions noted Neuro General: patient alert and patient oriented x3 Extrem General: full ROM and capillary refill normal Psych Mental Status: mental status grossly normal Course Vital Signs Vital signs: Vital Signs Pulse 80 11/16/21 22:36 Respiratory Rate 20 11/16/21 22:36 Blood Pressure 133/85 11/16/21 22:36 Pulse 80 11/16/21 22:36 Respiratory Rate 20 11/16/21 22:45 Respiratory Effort Non-Labored 11/16/21 22:45 Respiratory Depth Normal 11/16/21 22:45 Respiratory Pattern Normal 11/16/21 22:45 Blood Pressure 133/85 11/16/21 22:36 Blood Pressure Position Sitting 11/16/21 22:36 Oxygen Delivery Method Room Air 11/16/21 22:36 Oxygen Flow Rate 0 11/16/21 22:36 Pain Level 0 11/16/21 22:36 PAWSS Have you Been Recently Intoxicated or Drunk Within the Last 30 days?: No Have you Ever Experienced Previous Episodes of Alcohol Withdrawal?: No Have you ever Experienced Withdrawal Seizures?: No Have you ever Experienced Delirium Tremens(DT)s?: No Have you ever undergone Alcohol Rehabilitation Treatment (i.e, inpt ot outpatient treatment programs)?: No Have you ever Experienced Blackouts?: No Have you ever Combined Alcohol with other Downers within the last 90 days?: No Have you ever Combined Alcohol with any other Substance of Abuse during the last 90 days?: No Positive Blood Alcohol level on Presentation? [PCS.BAL]: No Evidence of Increased Autonomic Activity (i.e. HR>120, tremor, sweating, agitation, nausea)?: No Result: 0
[2021-11-16 23:20] VITALS: PULSE 72; RESP 22; O2SAT 90
[2021-11-16 23:22] LABS: Abs Immature Grans 0.03 10^3/uL (0.0-0.06); Absolute Basophil Count 0.04 10^3/uL (0.0-0.2); Absolute Eosinophil Count 0.16 10^3/uL (0.0-0.7); Absolute Lymphocyte Count 1.35 10^3/uL (1.2-3.4); Absolute Monocyte Count 0.64 10^3/uL (0.1-0.8); Basophils % 0.7; Eosinophils % 2.8; HGB 13.1 g/dL (11.2-15.7); Immature Grans % 0.5; Lymphocytes % 23.6; MPV 9.5 fL (8.0-11.0); Monocytes % 11.2; Neutrophils % 61.2; Nucleated RBC 0 %; Platelet Count 234 10^3/uL (130-400); RDW 13.9 % (11.7-14.6); RDW-SD 51.2 fL; WBC 5.72 10^3/uL (4.4-10.8)
[2021-11-16 23:30] VITALS: PULSE 83; RESP 22
[2021-11-16 23:37] LABS: INR 1.1 (0.9-1.1); PTT Activated 20.6 sec (21.0-27.5)
[2021-11-16 23:40] LABS: ALT 17 U/L (14-59); AST 24 U/L (15-37); Albumin 3.7 g/dL (3.4-5.0); Alkaline Phosphatase 179 U/L (46-116); Anion Gap 11.4 mmol/L (3-11); BUN 38 mg/dL (7-18); Bilirubin, Total 0.5 mg/dL (0.2-1.0); CO2 25.6 mmol/L (21.0-32.0); CREATININE 1.2 mg/dL (0.55-1.02); Calcium 8.9 mg/dL (8.5-10.1); Chloride 105 mmol/L (98-107); Estimated GFR 43.56 (mL/min/1.73m2); Glucose 102 mg/dL (74-106); Magnesium 2.1 mg/dL (1.8-2.4); Potassium 3.9 mmol/L (3.5-5.1); Sodium 142 mmol/L (136-145); Total Protein 6.9 g/dL (6.4-8.2); Troponin I < 50 ng/L (<or=60)
[2021-11-17] VITALS (12 sets, daily range): BP systolic 140–148; BP diastolic 81–99; PULSE 64–96; RESP 16–23; TEMP 36.7; O2SAT 91–99
--- NOTE | 2021-11-17 00:20 | DI.VRAD_ITS ---
PROCEDURE INFORMATION: Exam: CT Head Without Contrast Exam date and time: 11/16/2021 11:39 PM Age: 76 years old Clinical indication: Injury or trauma; Concussion/head injury; Consciousness not specified; Injury date: 11/16/21; Injury details: Fall, ? seizure TECHNIQUE: Imaging protocol: Computed tomography of the head without contrast. Radiation optimization: All CT scans at this facility use at least one of these dose optimization techniques: automated exposure control; mA and/or kV adjustment per patient size (includes targeted exams where dose is matched to clinical indication); or iterative reconstruction. COMPARISON: No relevant prior studies available. FINDINGS: Brain: There is moderate diffuse cerebral atrophy present, consistent with this patient's age. There is mild diffuse heterogeneity of the white matter attenuation, consistent with chronic white matter ischemic changes. No intracranial hemorrhage, midline shift, or mass effect. No acute loss of hare-white differentiation. Cerebral ventricles: The ventricular system demonstrates mild diffuse compensatory enlargement. Paranasal sinuses: Visualized sinuses are unremarkable. No fluid levels. Mastoid air cells: Visualized mastoid air cells are well aerated. Bones/joints: Unremarkable. No acute fracture. Soft tissues: Unremarkable. IMPRESSION: No acute abnormality. PROCEDURE INFORMATION: Exam: CT Cervical Spine Without Contrast Exam date and time: 11/16/2021 11:39 PM Age: 76 years old Clinical indication: Injury or trauma; Concussion/head injury; Consciousness not specified; Injury date: 11/16/21; Injury details: Fall, ? seizure TECHNIQUE: Imaging protocol: Computed tomography images of the cervical spine without contrast. Radiation optimization: All CT scans at this facility use at least one of these dose optimization techniques: automated exposure control; mA and/or kV adjustment per patient size (includes targeted exams where dose is matched to clinical indication); or iterative reconstruction. COMPARISON: No relevant prior studies available. FINDINGS: Vertebrae: Severe disc space narrowing at all levels. 3 mm anterolisthesis at C2-C3. 2 mm retrolisthesis at C3-C4. 3 mm retrolisthesis at C4-C5. 3 mm anterolisthesis at C7-T1. Moderate to severe multilevel facet arthropathy. No acute fracture. C2-C3: Facet arthropathy. Mild right neural foraminal stenosis. C3-C4: Posterior osteophytes and facet arthropathy. AP diameter of the central canal measures 7 mm. Severe bilateral neural foraminal stenosis. C4-C5: Posterior osteophytes. AP diameter of the central canal measures 9 mm. Severe bilateral neural foraminal stenosis. C5-C6: Posterior osteophytes and facet arthropathy. Severe bilateral neural foraminal stenosis. C6-C7: Posterior osteophytes and facet arthropathy. Moderate right and severe left neural foraminal stenosis. C7-T1: Listhesis. Mild bilateral neural foraminal stenosis. Soft tissues: Unremarkable. Thyroid: 11 mm hypodensity in the posterior upper left thyroid lobe. Vasculature: Calcified atherosclerotic disease. Lungs: Moderate biapical pleuroparenchymal scarring. IMPRESSION: 1. No acute fracture. 2. Multilevel cervical spondylosis, detailed above. 3. Left thyroid lobe hypodense lesion. No further imaging recommended for an incidental nodule less than 1.5 cm in this age group (ACR, 2015). Dictated and Authenticated by: Joel Graham MD. Ordering:SAVANNAH Amaral MD
--- NOTE | 2021-11-17 00:37 | DI.VRAD_ITS ---
PROCEDURE INFORMATION: Exam: XR Right Shoulder Exam date and time: 11/16/2021 11:48 PM Age: 76 years old Clinical indication: Injury or trauma; Blunt trauma (contusions or hematomas); Shoulder; Right; Injury date: 11/16/21; Injury details: Fall, pain TECHNIQUE: Imaging protocol: XR Right shoulder. Views: 2 or more views. COMPARISON: CT HEAD CERVICAL SPINE WO 11/16/2021 11:39 PM FINDINGS: Bones/joints: Normal. Soft tissues: Normal. IMPRESSION: No acute findings. Dictated and Authenticated by: Livan Godoy MD. Ordering:SAVANNAH Amaral MD
--- NOTE | 2021-11-17 00:37 | DI.VRAD_ITS ---
PROCEDURE INFORMATION: Exam: XR Right Elbow Exam date and time: 11/16/2021 11:52 PM Age: 76 years old Clinical indication: Pain and injury or trauma; Fall; Blunt trauma (contusions or hematomas); Shoulder and elbow; Right; Injury date: 11/16/21; Additional info: Fall, pain TECHNIQUE: Imaging protocol: XR Right elbow. Views: 3 or more views. COMPARISON: CR XR SHOULDER RT COMPLETE 2+V 11/16/2021 11:48 PM FINDINGS: Bones/joints: The anterior fat pad of the elbow is prominent, which raises suspicion for a joint effusion. No evidence of acute fracture. Soft tissues: Normal. IMPRESSION: The anterior fat pad of the elbow is prominent, which raises suspicion for a joint effusion. And occult elbow fracture cannot be excluded. Further evaluation may be performed with MRI of the elbow. Dictated and Authenticated by: Livan Godoy MD. Ordering:SAVANNAH Amaral MD
== END 2021-11-17 01:11 | disposition home or self-care (01) ==
PROVIDERS: Emergency Provider Emergency Medicine; PCP Nurse Practitioner
DX: R55 Syncope and collapse (principal); S51.011A Laceration without foreign body of right elbow, initial encounter; W19.XXXA Unspecified fall, initial encounter; I48.91 Unspecified atrial fibrillation; M25.421 Effusion, right elbow; G20 Parkinson's disease
CPT/HCPCS: 80053; 93005; 99284; 70450; 72125; 73030; 73080; 83735; 84484; 85025; 85610; 85730; 93010; 99285

== ENCOUNTER → 2021-12-04 13:27 | Outpatient (BNVA) | payer MEDICARE, SELFPAY | PROVIDERS: PCP Nurse Practitioner; Visit Provider Internal Medicine Cardiovascular Disease | DX: R55 Syncope and collapse (principal); I48.21 Permanent atrial fibrillation | CPT/HCPCS: 99214; 99213 ==

== ENCOUNTER 2022-01-08 02:52 | Outpatient (CLI) | payer MEDICARE, SELFPAY ==
[2022-01-08 10:26] LABS: Anion Gap 12.7 mmol/L (3-11); BUN 31 mg/dL (7-18); CO2 25.3 mmol/L (21.0-32.0); CREATININE 1.1 mg/dL (0.55-1.02); Calcium 8.7 mg/dL (8.5-10.1); Chloride 107 mmol/L (98-107); Estimated GFR 48.16 (mL/min/1.73m2); Glucose 86 mg/dL (74-106); Potassium 4.3 mmol/L (3.5-5.1); Sodium 145 mmol/L (136-145)
== END 2022-01-08 02:53 | disposition home or self-care (01) ==
LOC: LBO 02:52
PROVIDERS: PCP Nurse Practitioner; Visit Provider Nurse Practitioner
DX: R79.89 Other specified abnormal findings of blood chemistry (principal)
CPT/HCPCS: 36415; 80048

== ENCOUNTER → 2022-02-25 01:50 | Outpatient (CLI) | payer MEDICARE, SELFPAY ==
--- NOTE | 2022-02-25 07:30 | DI.MAMMO_ITS ---
Exam(s) MAMMO SCREENING EXAM: MAMMO SCREENING CLINICAL HISTORY: screening,z12.39. TECHNIQUE: Bilateral full field digital CC and MLO mammographic images were obtained with 3D tomosyn thesis and utilizing computer aided detection (CAD). COMPARISON: Prior mammograms were reviewed, the most recent being October 2020. FINDINGS: Fibroglandular tissue pattern is again noted be moderately dense, this somewhat decreasing the sensit ivity of the mammogram for finding in underlying lesions. No new significant radiograph findings in the right breast. Asymmetric density medially in left breast has now acquired some calcifications therein. This findin g is located approximately 5 cm the nipple. There is possibly this is a skin mole. There is no significant architectural distortion nor skin thickening-retraction. IMPRESSION: 1. No radiographic evidence of malignancy in right breast. 2. Left breast nodule versus skin mole. Recommend this patient return for additional imaging includ ing mole marker placement and additional views. Also possible ultrasound, depending on what addition al views reveal. BI-RADS Category 0 - Assessment Incomplete: Need additional imaging evaluation Breast Density - Category C - Heterogeneously dense Breast density Category C or D implies that the patient has dense breast tissue. Dense breast tissue can make it harder to find cancer on a mammogram. Dense breast tissue is also associated with an incr eased risk of breast cancer. This information about the result of the mammogram report was provided to the patient to raise their awareness. Use this report when you speak with the patient about their risks for breast cancer, which includes their family history. At that time, you may recommend additional screening tests (Ultrasoun d or MRI) as these tests may add significant information. A negative radiographic report should not delay biopsy if a dominant or clinically suspicious mass is present. Up to ten percent of cancers are not identified on mammography. A negative report may reinforce clinical impression. Adenosis and dense breasts may obscure an underlying neoplasm. False positive reports average 6 to 10%. Patient will receive a letter notifying them of these results.
== END ==
PROVIDERS: PCP Nurse Practitioner; Visit Provider Nurse Practitioner
DX: Z12.31 Encounter for screening mammogram for malignant neoplasm of breast (principal); R92.8 Other abnormal and inconclusive findings on diagnostic imaging of breast
CPT/HCPCS: 77063; 77067

== ENCOUNTER → 2022-03-04 00:10 | Outpatient (CLI) | payer MEDICARE, SELFPAY ==
--- NOTE | 2022-03-04 | DI.MAMMO_ITS ---
Exam(s) MAMMO SCREEN CALL BACK UNI EXAM: MAMMO SCREEN CALL BACK UNI CLINICAL HISTORY: F/U MAMMO, LT BREAST NODULE VS SKIN MOLE TECHNIQUE: Cc and MLO views were performed with a mole marker in place. COMPARISON: 25 February 2022 and exams back to 2011 FINDINGS: A mole marker was placed which corresponds to the area of nodularity with calcifications. This was p resent previously but appears more prominent when compared with prior exams. No suspicious masses or suspicious microcalcifications are seen within the breast. IMPRESSION: BI-RADS Cat 2 - Benign Findings Nodularity in the medial left breast corresponds to a skin lesion. Consider dermatology consult. Yearly screening mammography is recommended. Breast Density - Category B, scattered fibroglandular densities.
== END ==
PROVIDERS: PCP Nurse Practitioner; Visit Provider Nurse Practitioner
DX: Z12.31 Encounter for screening mammogram for malignant neoplasm of breast (principal); R92.8 Other abnormal and inconclusive findings on diagnostic imaging of breast; N64.59 Other signs and symptoms in breast; L98.8 Other specified disorders of the skin and subcutaneous tissue
CPT/HCPCS: 77063; 77067

== ENCOUNTER → 2022-04-23 11:06 | Outpatient (BNVA) | payer MEDICARE, SELFPAY | PROVIDERS: PCP Nurse Practitioner; Referring Provider Nurse Practitioner; Visit Provider Psychiatry & Neurology Neurology | DX: G20 Parkinson's disease (principal) | CPT/HCPCS: 99214 ==

== ENCOUNTER → 2022-04-30 01:35 | Outpatient (CLI) | payer MEDICARE, SELFPAY | PROVIDERS: PCP Nurse Practitioner; Visit Provider Internal Medicine Cardiovascular Disease | DX: I34.0 Nonrheumatic mitral (valve) insufficiency (principal); I48.20 Chronic atrial fibrillation, unspecified; R55 Syncope and collapse | CPT/HCPCS: 93306 ==

== ENCOUNTER → 2022-06-25 09:20 | Outpatient (BNVA) | payer MEDICARE, SELFPAY | PROVIDERS: PCP Nurse Practitioner; Visit Provider Internal Medicine Cardiovascular Disease | DX: I34.0 Nonrheumatic mitral (valve) insufficiency (principal); R55 Syncope and collapse; I35.1 Nonrheumatic aortic (valve) insufficiency; I07.1 Rheumatic tricuspid insufficiency | CPT/HCPCS: 99214 ==

== ENCOUNTER 2022-12-30 00:57 | Outpatient (CLI) | payer MEDICARE, SELFPAY ==
--- NOTE | 2022-12-30 08:15 | DI.US_ITS ---
APPROVED REPORT EXAM: Comprehensive 2D, Doppler, and color-flow Echocardiogram Patient Location: Out-Patient Sales Account Representative: Abena Stone RDCS (AE) Indications: Aortic and mitral regurgitation, Watchman device placed 2020 Other Information Study Quality: Adequate Conclusion Normal left ventricular chamber size. Borderline concentric left ventricular hypertrophy ejection f raction is 60%. Wall motion is normal Right ventricle is borderline dilated with preserved systolic function Both atria are severely dilated Aortic valve is sclerotic and trileaflet with mild aortic stenosis. Mean gradient is 13 mmHg. There is moderate to severe aortic regurgitation Thickened mitral leaflets with moderate to severe mitral regurgitation Normal tricuspid valve with severe regurgitation. Estimated right ventricular systolic pressure is 5 1 mmHg Dilated ascending aorta measuring 3.73 cm Wall motion Left Ventricle The left ventricle is normal size. The left ventricular systolic function is normal. The left ventric ular ejection fraction is within the normal range. Borderline concentric left ventricular hypertrophy . There is normal LV segmental wall motion. There is no ventricular septal defect visualized. LVEF is 60%. Right Ventricle Right ventricle is borderline dilated. The right ventricular systolic function is normal. The RVSP is 50.9mmHg. Atria Left atrium is severely dilated. Right atrium is severely dilated. The interatrial septum is intact w ith no evidence for an atrial septal defect. Aortic Valve The Aortic valve is sclerotic. Aortic valve is trileaflet. Mild aortic stenosis. Moderate to severe aortic regurgitation Mitral Valve Mild mitral annular calcification. No evidence of mitral valve stenosis. Moderate to severe mitral re gurgitation Tricuspid Valve The tricuspid valve is normal in structure. There is no tricuspid valve stenosis. severe tricuspid r egurgitation. Pulmonic Valve The pulmonary valve is normal in structure. There is no pulmonic valvular stenosis. Mild to moderate pulmonic regurgitation. Great Vessels The aortic root is normal in size. The ascending aorta is mildly dilated. Aortic arch is not well vis ualized. The IVC collapses <50% with inspiration. Pericardium Trace pericardial effusion. 2D Dimensions IVSD d PLAX 1.07 cm F: 0.6-1.0 LV Vol A2C d MOD 94.5 mL LVPW d PLAX 1.07 cm F: 0.6 - 1.0 LV Vol A4C d MOD 73.1 mL LVID d PLAX 5.06 cm F: 3.8 - 5.2 LA vol/ BSA A4C s A-L 81.6 mL/m2 LVDs 3.50 cm F: 2.2 - 3.5 LA Area A4C s MOD 30.90 cm2 Ao Root d 3.23 cm F: 2.7 - 3.3 LV EF A4C MOD 64.0 % RA Area A4C 29.71 cm2 LV EF A2C MOD 52.9 % RA Vol/ BSA A4C s A-L 73.3 mL/m2 LV EF Biplane MOD 58.3 % Ao Asc Diam d 3.73 cm F: 2.3 - 3.1 SV 50.34 mL LV EF Teichholz 57.8 % SV Index 31.62 mL/m2 LVEF (Garcia's) 58.32 % F: 54 - 74 LV Volume 70.27 mL F: 46 - 106 LV Volume Index 44.19 mL/m2 F: 29 - 61 LV Vol Biplane MOD 86.3 mL FS 30.55 % LV Diastology MV E' lateral 0.093 (>0.1 m/s) MV E Vmax 0.96 (0.4-1.3 m/s) LV E/e LAT 10.35 (<14) MV E/E' lateral 10.36 Aortic Valve LVOT Area 2.93 cm2 AoV Area Vmax 1.46 cm2 LVOT Vmax 1.09 m/s AoV Area/ BSA (Vmax) 0.92 cm2/m2 LVOT Peak Grad 4.7 mmHg AR DT 1622 msec LVOT Diam s 1.90 cm AR PHT 470 msec AoV Vmax 2.18 m/s Velocity Ratio 0.50 AoV Mean Richard. 1.46 m/s AoV Peak Grad 19.1 mmHg AoV Mean Grad 9.5 mmHg AoV VTI 0.399 m Mitral Valve MV DT 180 (160-240 msec) MR Vmax 5.57 m/s MV PHT 52 msec MR Peak Grad 124.2 mmHg MV Area PHT 4.22 cm2 MR PISA Radius 0.79 cm MR EROA 0.24 cm2 MR Aliasing Velocity 0.35 m/s MR PISA 3.89 cm2 Pulmonary Valve PV Vmax 0.81 (0.5-1.5 m/s) RVOT Peak Gr. 2.07 mmHg PV Peak Grad 2.6 mmHg RVOT Vmax 0.72 m/s Tricuspid Valve TR Peak Grad 42.9 mmHg TR Vmax 3.28 m/s RA Pressure 8.00 mmHg RVSP (TR) 50.9 mmHg
== END 2022-12-30 01:17 ==
LOC: DI 00:57
PROVIDERS: PCP Nurse Practitioner; Visit Provider Internal Medicine Cardiovascular Disease
DX: I34.0 Nonrheumatic mitral (valve) insufficiency (principal)
CPT/HCPCS: 93306

== ENCOUNTER 2023-01-03 10:24 | Outpatient (CLI) | payer MEDICARE, SELFPAY ==
--- NOTE | 2023-01-03 10:15 | RT.EKG_ITS ---
APPROVED REPORT Exam: Resting ECG Reason for Exam: cardiac evaluation Patient Location: O HR:94 bpm ECG Measurements Heart Rate 94 AXIS MA [id number] P [id number] QRSd 91 QRS -64 QT 373 T 88 QTc 467 Conclusion Atrial fibrillation...V-rate 71-109, irreg A-activity Ventricular premature complex...V complex w/ short R-R interval Left anterior fascicular block...axis(240,-40), init forces inf Anterior infarct, old...Q >40mS, abnormal ST-T, V2-V5 Left ventricular hypertrophy with repolarization abnormalities
== END 2023-01-03 10:25 | disposition home or self-care (01) ==
LOC: DI.CARD 10:25
PROVIDERS: PCP Nurse Practitioner; Visit Provider Internal Medicine Cardiovascular Disease
DX: Z13.6 Encounter for screening for cardiovascular disorders
CPT/HCPCS: 93010

== ENCOUNTER → 2023-01-03 10:26 | Outpatient (BNVA) | payer MEDICARE, SELFPAY | PROVIDERS: PCP Nurse Practitioner; Referring Provider Nurse Practitioner; Visit Provider Internal Medicine Cardiovascular Disease | DX: I48.21 Permanent atrial fibrillation (principal); I34.0 Nonrheumatic mitral (valve) insufficiency; I07.1 Rheumatic tricuspid insufficiency | CPT/HCPCS: 93005; 99214 ==

== ENCOUNTER → 2023-04-11 10:24 | Outpatient (BNVA) | payer MEDICARE, SELFPAY | PROVIDERS: PCP Nurse Practitioner; Referring Provider Nurse Practitioner; Visit Provider Internal Medicine Cardiovascular Disease | DX: I48.20 Chronic atrial fibrillation, unspecified (principal); I35.1 Nonrheumatic aortic (valve) insufficiency | CPT/HCPCS: 99214 ==

== ENCOUNTER → 2023-04-22 11:07 | Outpatient (BNVA) | payer MEDICARE, SELFPAY | PROVIDERS: PCP Nurse Practitioner; Visit Provider Psychiatry & Neurology Neurology | DX: G20 Parkinson's disease (principal) | CPT/HCPCS: 99214 ==

== ENCOUNTER → 2023-07-04 11:05 | Outpatient (BNVA) | payer MEDICARE, SELFPAY | PROVIDERS: PCP Nurse Practitioner; Referring Provider Nurse Practitioner; Visit Provider Internal Medicine Cardiovascular Disease | DX: I36.1 Nonrheumatic tricuspid (valve) insufficiency (principal); I34.0 Nonrheumatic mitral (valve) insufficiency; I35.1 Nonrheumatic aortic (valve) insufficiency | CPT/HCPCS: 99214 ==

== ENCOUNTER 2023-07-31 12:36 | Emergency (ER) | payer MEDICARE, SELFPAY ==
[2023-07-31] VITALS (8 sets, daily range): BP systolic 147–173; BP diastolic 89–118; PULSE 75–108; RESP 16; TEMP 36.5; O2SAT 98
--- NOTE | 2023-07-31 14:10 | DI.CT_ITS ---
Exam(s) CT HEAD CERV SPINE FACIAL WO EXAM: CT HEAD CERV SPINE FACIAL WO CLINICAL HISTORY: fall, [place], neck pain. TECHNIQUE: Imaging Protocol: Axial computed tomography images with coronal and sagittal reformatted images were created and reviewed COMPARISON: CT CT HEAD CERVICAL SPINE WO from 11/16/2021 FINDINGS: CT Head: Ventricles and Extra axial spaces: Normal in size and morphology for the patient's age. Hemorrhage: None. Cerebral parenchyma: There are areas of decreased attenuation in the white matter consistent with sma ll vessel ischemic disease. No evidence of an acute territorial infarct. Midline shift: None. Brainstem/Cerebellum: Normal. Calvarium: Normal. Visualized Paranasal sinuses/Mastoids: Clear. Soft Tissues: There is a subcutaneous hematoma along the midline posterior scalp. CT Face: Facial Bones: No definite fracture is noted in facial bones. Sinuses and Mastoids: Unremarkable. Globes, extraocular muscles, optic nerves and retrobulbar fat: Normal. Upper aerodigestive tract: Normal. Mandible and bilateral temporomandibular joints: Normal. Soft tissues: Normal. CT Cervical Spine: Bones: No acute fracture or subluxation. Multilevel degenerative changes in the cervical spine. Ther e is again seen 3 mm anterolisthesis of C2 on C3 and 4 mm anterolisthesis of C7 on T1 Soft Tissues: Unremarkable. Lung Apices: Clear. IMPRESSION: 1. No acute intracranial process. 2. No acute fracture or subluxation in the cervical spine. 3. No acute facial fracture. 4. Small subcutaneous hematoma along the posterior scalp. 5. Findings were discussed with the emergency department at 2:43 p.m. on 07/31/2023. RADIATION DOSE DELIVERED: Total DLP DATA REPOSITORY: All CT scans at this facility are submitted to the National Radiology Data Registry (NRDR) Dose Index Registry (DIR) with the [employer] (ACR). RADIATION OPTIMIZATION: All CT scans at this facility use at least one of these dose optimization te chniques: automated exposure control; mA and/or kV adjustment per patient size (includes targeted exa ms where dose is matched to clinical indication); or iterative reconstruction.
--- NOTE | 2023-07-31 15:35 | ED.GENADUL_ITS ---
Discharge Plan Disposition Patient Disposition: Home Discharge Details Clinical Impression: Head injury, Laceration of scalp Primary Care Provider: Macy Godoy ED Provider: Gris Garcia Home Meds and New Rx's Prescriptions: Continued furosemide [Lasix] 20 mg tablet 20 mg PO DAILY Qty: 90 3RF acetaminophen [Arthritis Pain Relief (acetam)] 650 mg tablet extended release 650 mg PO Q12H Patient Comments: taking three times a day TUMERIC 1 cap PO DAILY PRN aspirin [Adult Aspirin Regimen] 81 mg tablet,delayed release (DR/EC) 81 mg PO DAILY amantadine HCl 100 mg capsule See Rx Instructions .ROUTE .COMPLEX Qty: 270 3RF Dose Instruction: TAKE 1 CAPSULE BY MOUTH 3 TIMES DAILY Rx Instructions: TAKE 1 CAPSULE BY MOUTH 3 TIMES DAILY carbidopa-levodopa 25-100 mg tablet See Rx Instructions .ROUTE .COMPLEX Qty: 450 3RF Dose Instruction: TAKE 1 TABLET BY MOUTH DIRECTED 5 TIMES DAILY AT 5 AM, 8 AM, 11 AM, 2 PM, AND 5 PM Rx Instructions: TAKE 1 TABLET BY MOUTH DIRECTED 5 TIMES DAILY AT 5 AM, 8 AM, 11 AM, 2 PM, AND 5 PM metoprolol succinate 25 mg tablet extended release 24 hr 25 mg PO .nightly Qty: 90 6RF Discharge Instructions Instructions: Head Injury (ED), Contusion in Adults (ED) Additional Instructions: Keep scalp clean and dry for 24 hours, you may take a shower after, refrain from scrubbing over the area I placed glue, the glue will come off on its own She developed headache, dizziness, or any confusion you should be reevaluated immediately, I recommend family check on you this evening and in the morning just to make sure that you are feeling okay Take Tylenol before bed Use caution and get up slowly when going from sitting to standing Referrals: Macy Godoy, PRODUCTION CLERK [Primary Care Provider] - Medical Decision Making 69-year-old female, presenting with fall, head injury, no anticoagulation, CT head and cervical spine was ordered, does not show evidence of acute abnormality per radiology interpretation my review Pupils equal round reactive to light and accommodation, GCS 15, no hemotympanum, no cervical spine midline tenderness, lungs clear to auscultation, no chest tenderness, thoracic tenderness, abdominal tenderness, no upper extremity or lower extremity evidence of trauma, alert and oriented x 4 Temperature reportedly within normal limits, mechanical fall, no indication for blood work at this time, remains alert and oriented, ambulatory steady gait at time of discharge home Blood pressure elevated, encouraged to have this rechecked by primary care physician within the next several days Return precautions reviewed in detail and patient expressed understanding Head to toe physical exam performed, HPI General Date/Time Provider Initiated Documentation: 07/31/23 12:39 . HPI Narrative: This 77-year-old female presents with report head injury. Slipped on ice while walking to her car after her appointment. Was assisted up by EMS, denies loss of consciousness. Has some mild pain to the occipital region of her head but denies any additional injuries. Denies anticoagulation. Does take an 81 mg aspirin daily. Denies any chest pain or shortness of breath. Denies any dizziness or weakness. Denies any nausea or vomiting. Denies any vision change. Related Data Home Medications Medication Instructions Recorded Confirmed TUMERIC 1 cap PO DAILY PRN 12/14/18 07/31/23 aspirin 81 mg tablet,delayed 81 mg PO DAILY 12/15/20 07/31/23 release (Adult Aspirin Regimen) acetaminophen 650 mg 650 mg PO Q12H 05/28/21 07/31/23 tablet,extended release (Arthritis Pain Relief (acetaminophen) ER) amantadine HCl 100 mg capsule See Rx Instructions .Route 12/16/22 07/31/23 .COMPLEX #270 caps carbidopa 25 mg-levodopa 100 mg See Rx Instructions .Route 02/03/23 07/31/23 tablet .COMPLEX #450 tabs furosemide 20 mg tablet (Lasix) 20 mg PO DAILY #90 tabs 07/04/23 07/31/23 metoprolol succinate 25 mg 25 mg PO .nightly #90 tabs 07/07/23 07/31/23 tablet,extended release 24 hr Previous Rx's Medication Instructions Recorded amantadine HCl 100 mg capsule See Rx Instructions .Route 12/16/22 .COMPLEX #270 caps carbidopa 25 mg-levodopa 100 mg See Rx Instructions .Route 02/03/23 tablet .COMPLEX #450 tabs furosemide 20 mg tablet (Lasix) 20 mg PO DAILY #90 tabs 07/04/23 metoprolol succinate 25 mg 25 mg PO .nightly #90 tabs 07/07/23 tablet,extended release 24 hr Allergies Allergy/AdvReac Type Severity Reaction Status Date / Time No Known Allergies Allergy Verified 07/31/23 12:44 General Stated Complaint: Fall/Non TraumaCriteria MARS: 3 PFSH All Active Problems (Updated 07/31/23 @ 15:45 by MONSERRAT Potter) Laceration of scalp (Acute) Head injury (Acute) At risk for loneliness (Acute) Ambulatory dysfunction (Acute) Physician orders for life-sustaining treatment (POLST) form indicates patient wish for [id number] status (Acute) ACP (advance care planning) (Acute) Dementia (Chronic) Nonrheumatic aortic (valve) insufficiency (Acute) 02/25/23 Cardiology 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) Status post fall (Acute) Back pain of lumbosacral region with sciatica (Acute) White coat syndrome with diagnosis of hypertension (Acute) Nosebleed (Acute) Aortic regurgitation (Acute) 12/14/20 Watchman placed [facility] 01/29/21 Transesophageal Echo at [facility] Tricuspid regurgitation (Acute) Mitral regurgitation (Chronic) Bilateral knee pain (Acute) Elevated alkaline phosphatase level (Acute) Raynaud's disease without gangrene (Chronic 12/14/15) Primary osteoarthritis of right hip (Chronic 12/01/17) s/p R THR 03/2018 Postmenopausal atrophic vaginitis (Chronic 12/12/14) Parkinson disease (Chronic 04/29/16) follows with Dr. Osborne and Dr. Rees at [facility] [place] Osteoarthritis of both hands (Chronic 12/12/14) Chronic atrial fibrillation (Chronic 04/29/16) Medical History Epidermal cyst (~05/2022) 06/14/22 Dr Robles Actinic keratosis (~05/2022) 06/14/22 Dr Robles History of left heart catheterization 12/14/20 [facility] L atrial occlusion procedure Cortical cataract of right eye Cataract Surgical History Status post cataract extraction and insertion of intraocular lens of right eye (01/08/19) Status post cataract extraction and insertion of intraocular lens of left eye Status post total replacement of right hip 04/17/18 at [facility] [place] Family History Paternal Grandfather Diabetes Maternal Grandmother Tremor Social History Smoking/Tobacco Use Status: Never Second Hand Exposure: Yes Smoking risk assessment performed?: Yes Alcohol Intake: current Alcohol Intake frequency: holidays/special occasions only Alcohol type: wine Substance use type: does not use Caregiver/Support person: No Household members: none Housing: house Pets and animals: Yes Sexually active: No Do you think of yourself as: straight/heterosexual Current gender identity: female What is your relationship status?: How often do you talk on the phone with friends or family?: three or more times per week How often do you get together with friends or relatives?: three or more times per week How often do you attend orthodox or jain services?: decline to answer Do you belong to any clubs or organized social groups?: no Panel score (0-1 are the most socially isolated patients): 1 What type of physical activity do you participate in: walking Duration: 30-45 minutes/day Frequency: 3-4 times per week Elizabeth/Christian: Rastafari Special elizabeth needs: No Seatbelt use: always Helmet use: Yes Helmet use: always Drive intox or ride w/intox regional owner operator truck driver: No Do you feel safe at home: Yes Do you feel safe in your relationship?: Yes Additional Social history: with 2 grown children. 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 No smoking. Occasional wine. No illicit drug use. 05/30/20- unable to assess privately Female Reproductive History Menstrual Menopause type: natural History History 2 Para Hx # Term Pregnancies 2 Multiple births Hx # Pregnancies Ectopic pregnancies AB induced Hx Number of Living Children AB spontaneous Course Vital Signs Vital signs: Vital Signs Pulse 87 07/31/23 12:38 Respiratory Rate 16 07/31/23 12:38 Blood Pressure 154/100 H 07/31/23 12:38 Pulse Oximetry 98 07/31/23 12:38 Pulse 90 07/31/23 13:46 Respiratory Rate 16 07/31/23 12:38 Respiratory Effort Normal, Non-Labored 07/31/23 12:46 Blood Pressure 147/108 H 07/31/23 13:46 Blood Pressure Mean 116 07/31/23 13:46 Blood Pressure Position Sitting 12/14/23 12:38 Pulse Oximetry 98 07/31/23 12:38 Oxygen Delivery Method Room Air 07/31/23 12:38 Oxygen Flow Rate 0 07/31/23 12:38 Pain Level 0 07/31/23 12:38
== END 2023-07-31 15:54 | disposition home or self-care (01) ==
PROVIDERS: Emergency Provider Physician Assistant; PCP Nurse Practitioner
DX: S01.01XA Laceration without foreign body of scalp, initial encounter; W00.0XXA Fall on same level due to ice and snow, initial encounter; Z79.82 Long term (current) use of aspirin; R40.2410 Glasgow coma scale score 13-15, unspecified time; G20.A1 Parkinson's disease without dyskinesia, without mention of fluctuations; Z79.899 Other long term (current) drug therapy
CPT/HCPCS: 99284; 70450; 70486; 72125